=== PATIENT | male | born 1960 | race Caucasian/White ===

== ENCOUNTER 2016-09-28 08:02 | Inpatient (IN) | payer MEDICARE, MEDICAID ==
[2016-09-28] VITALS (7 sets, daily range): BP systolic 128–155; BP diastolic 86–101; PULSE 63–90; RESP 13–19; O2SAT 95–99
[~2016-09-28] VITALS: Ht 170.2 cm; Wt 115.3 kg
--- NOTE | 2016-09-28 08:10 | ED.REPORT ---
HPI-Neurologic Deficit Date of Service Sep 28, 2016 ED Provider: Lisa Camp MD The pt is a 57 y/o male w/ a hx of L eye surgery presenting to the ED via EMS due to a stroke. They report him having witnessed L sided weakness at 0630 this morning that improved, later he went outside and sat down, and was found again w / L sided weakness and slurred speech at 0800. The pt reports chronically poor vision. Denies headaches. Nursing Notes Stated Complaint: POSSIBLE STROKE Chief Complaint: Possible stroke Nursing Notes Reviewed: Yes Allergies: Coded Allergies: No Known Allergies (Unverified , 09/28/16) No Active Prescriptions or Reported Meds General Time Seen by Provider: 08:10 Chief Complaint Other (Possible stroke ) Hx Obtained From: EMS Arrived By: Ambulance Sudden in Onset?: Yes Onset Occurred: 1 - 4 hours ago Symptom Duration: Since onset Recent Healthcare: No recent doctor visit, No recent hospitalization Similar Sx Previous: No Risk Factors NIH Stroke Scale Level of Consciousness: Not alert, arousable (1) 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 (1) Visual Montaño: No visual loss (0) Facial Palsy: Partial paral, lower (2) Right Arm Motor Drift (10s): No drift 10 sec (0) Left Arm Motor Drift (10s): No movement (4) Right Leg Motor Drift (5s): No drift 5 sec (0) Left Leg Motor Drift (5s): No effort, limb fails (3) Sensation (Arms/Legs/Face): Complete sensory loss (2) Language Aphasia: Loss fluency ID matls (1) Dysarthria: Slurring intelligible (1) Extinction/Inattention: No exctinct/inattent (0) Past Medical History Past Medical History None reported Past Surgical History L eye surgery Smoking History Never Smoker Social History Other Social History: Ambulatory Status Independent Review of Systems Neurologic: Reports: Focal weakness (L sided ), Slurred speech, Denies: Headache Complete sys rev & neg: except as marked. Physical Exam Initial Vital Signs Vital Signs (First) Date Time Temp Pulse Resp B/P Pulse Ox O2 Delivery O2 Flow Rate FiO2 09/28/16 08:12 37.4 90 19 155/99 96 Room Air 09/28/16 08:45 2 Initial VS: Reviewed, Vital signs abnormal ENT: Mucous membranes moist, Conjunctiva normal, No scleral icterus Neck: Supple, Non-tender, Full range of motion Abdomen / GI: Soft, Non-tender Skin: Warm, Dry, No cyanosis General/Constitutional: Well nourished Alertness: Positive: Responds to verb stimuli GCS 14 due to lack of spontaneous eye opening Head / Eyes: Normocephalic L pupil small and irregular R pupil large and irregular Respiratory / Chest: Atraumatic, Breath sounds = bilat Rales / Rhonchi: Positive: Rhonchi diffuse Cardiovascular: Heart rate NL, Regular rhythm, Heart sounds NL No carotid bruit Speech: Positive: Slurred Decreased touch to L leg L facial droop No sensation to L arm Interpretation & Diagnostics CT BRAIN TPA Impression: No contraindications to TPA administration found. This information was immediately called directly to the emergency room physician caring for the patient at 8:29. Dictated by: Naveen Reed M.D. on 09/28/16 at 8:30 Approved by: Naveen Reed M.D. on 09/28/16 at 8:34 PROCEDURE: CT ANGIO BRAIN NECK TPA IMPRESSION: No aneurysm or embolus seen, and no area of vascular stenosis or dissection identified. Findings immediately called to the ordering emergency room physician caring for the patient. Dictated by: Naveen Reed M.D. on 09/28/2016 at 10:08 Approved by: Naveen Reed M.D. on 09/28/2016 at 10:14 Lab Results Interpretation Result Diagram: 09/28/16 0824 09/28/16 0824 Test 09/28/16 08:24 White Blood Count 5.1th/mm3 (3.8-10.1) Red Blood Count 4.84mil/mm3 (4.40-5.80) Hemoglobin 14.6g/dL (13.8-17.2) Hematocrit 43.1% (41.0-50.0) Mean Corpuscular Volume 89.0fL (81-100) Mean Corpuscular Hemoglobin 30.2pg (27.0-35.0) Mean Corpuscular Hemoglobin Concent 33.9% (32.0-37.0) Red Cell Distribution Width 14.3% (12.3-15.4) Platelet Count 128bil/L (150-400) Neutrophils (%) (Auto) 64.6% (40-74) Lymphocytes (%) (Auto) 18.9% (14-46) Monocytes (%) (Auto) 13.0% (4-12) Eosinophils (%) (Auto) 2.9% (0-5) Basophils (%) (Auto) 0.4% (0-3) Prothrombin Time 10.8sec (8.1-12.5) Prothromb Time International Ratio 1.01ratio Activated Partial Thromboplast Time 28.1sec (22.8-33.0) Sodium Level 139mEq/L (134-144) Potassium Level 3.9mEq/L (3.5-5.2) Chloride Level 100mEq/L (97-108) Carbon Dioxide Level 26mmol/L (18-29) Blood Urea Nitrogen 16mg/dL (6-24) Creatinine 0.71mg/dL (0.76-1.27) Estimat Glomerular Filtration Rate 122mL/min (>59) Glucose Level 101mg/dL (60-99) Calcium Level 9.2mg/dL (8.5-10.1) Magnesium Level 1.7mg/dL (1.6-2.6) Total Bilirubin 0.8mg/dL (0.0-1.2) Aspartate Amino Transf (AST/SGOT) 28U/L (0-50) Alanine Aminotransferase (ALT/SGPT) 26U/L (0-44) Alkaline Phosphatase 71U/L (25-150) Troponin T 0.010ug/L (0.0-0.011) Total Protein 6.9g/dL (6.4-8.4) Albumin 4.2g/dL (3.4-5.0) Prealbumin 17mg/dL (20-40) Triglycerides Level 65mg/dL (0-149) Cholesterol Level 144mg/dL (100-199) LDL Cholesterol, Calculated 100.000mg/dL (0-99) VLDL Cholesterol 13.000mg/dL HDL Cholesterol 31mg/dL (>39) Cholesterol/HDL Ratio 4.65 (0.0-4.4) ECG Interpretation ECG Interpretation: Rate 79 NSR Time: 09:05 Interpreted by: ED physician X-Ray Chest Interpretation Chest Xray Interpretation: IMPRESSION: Bibasilar mild atelectasis, no pneumonia found, reduced inspiratory volume bilaterally. Dictated by: Naveen Reed M.D. on 09/28/2016 at 9:58 Approved by: Naveen Reed M.D. on 09/28/2016 at 9:58 View: Portable, 1 view Interpretation / Wet Read by: Interpret - Radiologist Re-Eval/Medical Decision Med Decision/Clinical Course The patient presents with witnessed strokelike symptoms at 6:30 which improved and then worsened again. His pain scores 14 however he is unable to do some tasks, he would not open his eyes and had some difficulty following commands. I spoke with Dr. Qureshi at [facility] who recommended TPA, as discussed with the patient and he consented verbally. After receiving TPA he did improve that there were still some difficulty trying to get him to obey some commands, he just wanted to go to sleep. Re-Evaluation/Progress #1: Time of Eval: 08:44 Re-Evaluation/Progress Note: Discussed pts case w/ Dr. Qureshi via telemedicine and they recommended CTA STAT of head and neck Re-Evaluation/Progress #2: Time of Eval: 10:01 Re-Evaluation/Progress Note: Rechecked pt. Pt is more responsive and is able to hold his L arm up better than first arrival. Pt reported to the nurse that he is homeless and smokes meth. Consultation #1: Referral / Consult Name: Lary Qureshi MD Consulted With: Neurology Call Returned at: 10:15 Note: Discussed pts case. Dr. Qureshi reports keeping the pt here and admitting. 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 I, Dr. Camp personally performed the history, physical exam and medical decision-making; I reviewed and confirmed the accuracy of the information in the transcribed note. copies to: [facility] Lisa Camp MD Sep 28, 2016 08:10 Adalberto Joyce Sep 28, 2016 08:32
--- NOTE | 2016-09-28 08:36 | DRSVH ---
PROCEDURE: CT BRAIN TPA INDICATIONS: STROKE COMPARISON: None. TECHNIQUE: Axial 5 mm thin sections through the head were obtained without contrast FINDINGS: No sign of stroke or hemorrhage, no thrombus within the skull base arterial vasculature is identified. Minimal mucosal thickening involves the ethmoid air cells bilaterally symmetric. IMPRESSION: No contraindication to TPA administration found. This information was immediately ramirez d directly to the emergency room physician caring for the patient at 8:29. Dictated by: Naveen Reed M.D. on 09/28/2016 at 8:30 Approved by: Naveen Reed M.D. on 09/28/2016 at 8:34
[2016-09-28 08:37] LABS: BASOPHILS % (AUTO) 0.4 % (0-3); EOSINOPHILS % (AUTO) 2.9 % (0-5); Mean Corpuscular Hemoglobin 30.2 pg (27.0-35.0); NEUTROPHILS % (AUTO) 64.6 % (40-74); Platelet Count 128 bil/L (150-400)
[2016-09-28 08:38] LABS: INR 1.01 ratio
[2016-09-28 08:43] LABS: TROPONIN T 0.01 ug/L (0.0-0.011)
[2016-09-28] MEDS ORDERED: Alteplase (No Charge) 1 mg/mL Syringe IV ONE (08:50)
[2016-09-28] MEDS ORDERED: Alteplase (TPA) 100 mg/100 mL Premix IV ONE (08:52)
[2016-09-28] MEDS ORDERED: Alteplase Dose Per Pharmacist XX ONE (09:05)
--- NOTE | 2016-09-28 10:01 | DRSVH ---
PROCEDURE: X-RAY CHEST ONE VIEW, PORTABLE ([id number]) INDICATIONS: cough TECHNIQUE: One view of the chest was acquired. COMPARISON: None. FINDINGS: Surgical changes and devices: None. Lungs and pleura: No pleural effusions or pneumothorax. Lungs are clear considering reduced inspira tory volume bilaterally. Mediastinum: Mediastinal contours appear normal. Heart size is normal. Bones and chest wall: No suspicious bony lesions. Overlying soft tissues appear unremarkable. IMPRESSION: Bibasilar mild atelectasis, no pneumonia found, reduced inspiratory volume bilaterally. Dictated by: Naveen Reed M.D. on 09/28/2016 at 9:58 Approved by: Naveen Reed M.D. on 09/28/2016 at 9:58
--- NOTE | 2016-09-28 10:16 | DRSVH ---
PROCEDURE: CT ANGIO BRAIN NECK TPA INDICATIONS: Stroke symptoms, improving. TECHNIQUE: Pre-contrast 4.5 mm thick sections acquired from the foramen magnum to the vertex. After the adminis tration of intravenous contrast, 1 mm thick sections acquired from the aortic arch through the [place] of [place]. Post-contrast 4.5 mm thick sections then re-acquired from the foramen magnum to the vert ex. 3-dimensional kgmfhop-dppvywzzc-frfaifkhyf (MIP) and/or volume rendering reformats were acquired of the central intracranial vasculature and neck separately. For radiation dose reduction, the foll owing was used: automated exposure control, adjustment of mA and/or kV according to patient size. COMPARISON: Merged With [facility], CT, CT BRAIN TPA, 09/28/2016, 8:20. FINDINGS: Image quality: Excellent. BRAIN: CSF spaces: Ventricles are normal in size and shape. Basal cisterns are patent. No extra-axial flu id collections. Brain: No midline shift. No intracranial bleeds or masses. Roldan-white matter interface appears int act. Skull and face: Calvarium and facial bones appear intact, without suspicious lesions. Orbits appear normal. Sinuses: Sinuses and mastoids are clear. HEAD CT ANGIOGRAPHY: Anterior circulation: Intracranial internal carotid arteries are normal in size and flow. The flow within the paired anterior cerebral arteries is normal and symmetric. The flow within the middle cer ebral arteries is normal and symmetric. The anterior communicating artery is seen. No aneurysms are seen. Posterior circulation: Visualized portions of the vertebral arteries demonstrate normal caliber, and join to form a normal appearing basilar artery. Flow within the posterior cerebral arteries is norm al and symmetric. No aneurysms are seen. NECK CT ANGIOGRAPHY: Carotid system: The great vessels demonstrate a conventional anatomy as they arise from the aortic a [facility]. The origins of the common carotid arteries appear patent. The common carotid arteries demonstr ate normal caliber and courses. The bifurcation regions are both widely patent. The internal caroti d arteries demonstrate normal calibers and courses. Posterior circulation: The origins of the vertebral arteries both appear widely patent. The more morataya perior extracranial portions of both vertebral arteries also demonstrate normal courses and calibers. They join to form a normal appearing basilar artery. Soft tissues: Visualized neck soft tissues demonstrate no suspicious abnormalities. A small focus o f increased radiodensity at the right forehead area is incidentally noted, possibly a minimal contusi on from recent trauma but a small focus of scar tissue also could produce the appearance. Bones: No suspicious bony lesions. Visualized cervical spine appears normally aligned. IMPRESSION: No aneurysm or embolus seen, and no area of vascular stenosis or dissection identified. Findings immediately called to the ordering emergency room physician caring for the patient. Dictated by: Naveen Reed M.D. on 09/28/2016 at 10:08 Approved by: Naveen Reed M.D. on 09/28/2016 at 10:14
--- NOTE | 2016-09-28 13:27 | NUR ---
Order for swallow eval received. The pt is somnolent and not yet appropriate for a swallow eval. ST will f/u tomorrow. Rec strict NPO until swallow eval is completed.
[2016-09-28] MEDS ORDERED: Ondansetron 2 mg/mL 2 mL Inj IVPUSH PRN (13:45)
[2016-09-28] MEDS ORDERED: Labetalol 5 mg/mL 20 mL Inj IVPUSH PRN (13:45)
[2016-09-28 14:18] LABS: Magnesium 1.7 mg/dL (1.6-2.6)
--- NOTE | 2016-09-28 14:26 | PCM.HPMED ---
Subjective Date of Service Sep 28, 2016 Primary Provider: Admitting Physician: Valdemar Root MD Primary Care Physician: [place] Attending Physician: Valdemar Root MD Admit Status: From the Emergency Department, Critical Care Chief Complaint: Left-sided weakness and slurred speech History of Present Illness: This is a 56-year-old male who is somewhat somnolent the CCU after being transferred from the emergency department. He is able to interact or answer any questions. All history is related entirely from the emergency room physician. She relates that the patient developed left-sided weakness and approximate 6:30 this morning. He would then went outside of his house was significant porch where he was found to be more confused and have a more prominent weakness in his left arm and leg as well as a facial symptoms or speech. He was brought to the emergency department. He has all urination about 10 and underwent a stat CT of the head which was negative for evidence of bleed. [place] neurology was consulted from [facility] and the decision was made to treat him with TPA for acute stroke significant left hemiparesis. The patient apparently had some improvement neurologically she was able to lift his left arm after TPA. He was then transferred to the floor and when initially seen in the floor has garbled speech, is somnolent, has minimal if any movement of left arm but can move the left leg and response to noxious stimulation. Because of his mental status subjective and review of systems are unobtainable. Review of Systems: Unobtainable due to somnolence Allergies Coded Allergies: No Known Allergies (Unverified , 09/28/16) Home Medications None per ED records PMH Unremarkable other than asymmetric pupils Surgical History Left eye surgery, details not available. Family History Not obtainable Social History Occupation: not obtainable Hx Alcohol Use: No (hx from ED RN) Hx Substance Use: Yes (Hx per ED RN) Smoking Status: Never Smoker Living Arrangement: with Family Exam Vital Signs Vital Sign - Last Date Time Temp Pulse Resp B/P Pulse Ox O2 Delivery O2 Flow Rate FiO2 09/28/16 11:51 36.5 09/28/16 11:15 74 14 154/99 95 Room Air 09/28/16 08:55 2 Exam Patient is somnolent and minimally arousable. He can follow commands by squeezing collections rep with his right hand and moving his right foot. The patient does not move his left lower extremity to commands but does pull up 1 given a noxious stimulation. The left arm appears to be flaccid, there is no discernible facial droop. Patient does have garbled speech. [place] area with a irregular small left pupillary irregular large right pupil. Normal skull. Normal nose and ears. Anicteric sclera, symmetric pupils Oropharynx is unremarkable, no facial droop. Neck is supple, normal thyroid. No adenopathy. Lungs are clear, normal effort rate. Heart is regular without murmur gallop or rub. Abdomen soft, nondistended or tender. Extremities are free of pedal edema. Good radial and pedal pulses. Skin is free of rash, lesions. No petechiae or ecchymosis. Joints are grossly normal. Cranial nerves are grossly normal. On garbled speech. Gaze is conjugate. Motor strength is normal right arm and leg. Patient does have some movement of left leg with noxious stimulation and left arm appears to be flaccid.. Normal muscular tone. On the right side of body. Lab and Diagnostics Result Diagram: 09/28/1682309/28/16823 X-Rays, CTs and MRIs Date of Service: 09/28/16802 PROCEDURE: CT BRAIN TPA INDICATIONS: STROKE COMPARISON: None. TECHNIQUE: Axial 5 mm thin sections through the head were obtained without contrast FINDINGS: No sign of stroke or hemorrhage, no thrombus within the skull base arterial vasculature is identified. Minimal mucosal thickening involves the ethmoid air cells bilaterally symmetric. IMPRESSION: No contraindication to TPA administration found. This information was immediately called directly to the emergency room physician caring for the patient at 8:29. Dictated by: Naveen Reed M.D. on 09/28/2016 at 8:30 Approved by: Naveen Reed M.D. on 09/28/2016 at 8:34 Date of Service: 09/28/16 0845 PROCEDURE: CT ANGIO BRAIN NECK TPA INDICATIONS: Stroke symptoms, improving. TECHNIQUE: Pre-contrast 4.5 mm thick sections acquired from the foramen magnum to the vertex. After the administration of intravenous contrast, 1 mm thick sections acquired from the aortic arch through the [place] of [place]. Post-contrast 4.5 mm thick sections then re-acquired from the foramen magnum to the vertex. 3- dimensional kftmqor-ncwauwqky-qxceqfrnmg (MIP) and/or volume rendering reformats were acquired of the central intracranial vasculature and neck separately. For radiation dose reduction, the following was used: automated exposure control, adjustment of mA and/or kV according to patient size. COMPARISON: [facility], CT, CT BRAIN TPA, 09/28/2016, 8:20. FINDINGS: Image quality: Excellent. BRAIN: CSF spaces: Ventricles are normal in size and shape. Basal cisterns are patent. No extra-axial fluid collections. Brain: No midline shift. No intracranial bleeds or masses. Roldan-white matter interface appears intact. Skull and face: Calvarium and facial bones appear intact, without suspicious lesions. Orbits appear normal. Sinuses: Sinuses and mastoids are clear. HEAD CT ANGIOGRAPHY: Anterior circulation: Intracranial internal carotid arteries are normal in size and flow. The flow within the paired anterior cerebral arteries is normal and symmetric. The flow within the middle cerebral arteries is normal and symmetric. The anterior communicating artery is seen. No aneurysms are seen. Posterior circulation: Visualized portions of the vertebral arteries demonstrate normal caliber, and join to form a normal appearing basilar artery. Flow within the posterior cerebral arteries is normal and symmetric. No aneurysms are seen. NECK CT ANGIOGRAPHY: Carotid system: The great vessels demonstrate a conventional anatomy as they arise from the aortic arch. The origins of the common carotid arteries appear patent. The common carotid arteries demonstrate normal caliber and courses. The bifurcation regions are both widely patent. The internal carotid arteries demonstrate normal calibers and courses. Posterior circulation: The origins of the vertebral arteries both appear widely patent. The more superior extracranial portions of both vertebral arteries also demonstrate normal courses and calibers. They join to form a normal appearing basilar artery. Soft tissues: Visualized neck soft tissues demonstrate no suspicious abnormalities. A small focus of increased radiodensity at the right forehead area is incidentally noted, possibly a minimal contusion from recent trauma but a small focus of scar tissue also could produce the appearance. Bones: No suspicious bony lesions. Visualized cervical spine appears normally aligned. IMPRESSION: No aneurysm or embolus seen, and no area of vascular stenosis or dissection identified. Findings immediately called to the ordering emergency room physician caring for the patient. Dictated by: Naveen Reed M.D. on 09/28/2016 at 10:08 Approved by: Naveen Reed M.D. on 09/28/2016 at 10:14 Assessment & Plan #. 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 This is either stable or slightly improved. The patient did undergo TPA infusion. The patient placed on post-TPA stroke order set and will undergo interval CT scan now to rule out hemorrhage or evidence of developing cortical stroke. #. Acute encephalopathy, POA. We will follow clinically. CT scan to rule out hemorrhage. #. Chronic anisocoria, POA. Patient is presumed to be a full resuscitation Patient is admitted inpatient status with an expected length of stay of over 2 nights. Pain Evaluation: Adequate Pain Control Resuscitation Status: CPR: Attempt Resuscitation Time spent 45 min Valdemar Root MD Sep 28, 2016 14:26
--- NOTE | 2016-09-28 14:59 | NUR ---
From ED to CCU #2015 at 1115 via alon, s/p TPA. Has remained somnolent, responding to questions with grunts and groans, has not opened eyes to command or spontaneously. Left arm is flaccid, have noted no movement of his left lower extremity. The only command he has responded to appropriately is holding his right arm elevated once assisted to do so. He does resist oral care and face washing by shaking his head back and forth and mumbling. Has not voided. Skin appears intact, some redness to groin skin folds and buttocks, full bath given upon arrival. MD updated with continued somnolence, BPs. Repeat CT scan ordered, post-tpa protocol.
--- NOTE | 2016-09-28 17:24 | DRSVH ---
PROCEDURE: CT BRAIN WITHOUT CONTRAST ([id number]) INDICATIONS: 4-6 hrs Post tPA Infusion TECHNIQUE: Noncontrast 4.5 mm thick angled axial sections acquired from the foramen magnum to the vertex, with c oronal reformats. COMPARISON: [facility], CT, CT BRAIN TPA, 09/28/2016, 8:20. FINDINGS: Image quality: Excellent. CSF spaces: Basal cisterns are patent. No extra-axial fluid collections. Ventricles are normal in size and shape. Brain: No midline shift. No intracranial masses or hemorrhage. Roldan-white matter interface is norm al. Skull and face: Calvarium and visualized facial bones are intact, without suspicious lesions. Sinuses: Visualized sinuses and mastoids are clear. IMPRESSION: No changeover operator time, no intracranial hemorrhage after TPA infusion. Dictated by: Naveen Reed M.D. on 09/28/2016 at 17:22 Approved by: Naveen Reed M.D. on 09/28/2016 at 17:22
[2016-09-28 18:27] LABS: APPEARANCE,URINE CLEAR (CLEAR,HAZY); COLOR,URINE YELLOW (YELLOW); OCCULT BLOOD,URINE NEGATIVE (NEGATIVE); PH,URINE 5.5 (5.0-8.0); UROBILINOGEN,URINE NORMAL (NORMAL)
[2016-09-28] MEDS: 0.9% Sodium Chloride 1,000 ML IV SCH (19:53)
[2016-09-29] VITALS (7 sets, daily range): BP systolic 124–140; BP diastolic 81–92; PULSE 65–75; RESP 13–16; O2SAT 93–96
--- NOTE | 2016-09-29 03:52 | NUR ---
S/P TPA Pt uncooperative with assessing neurological status. At beginning of shift, pt followed commands and squeezed with left hand and was able to lift his left leg off the bed. Subsequent assessments, pt would not open his eyes, Pt not following commands to squeeze hands including right hand. VSS, BP normal to hypertensive allowing for permissive hypertension s/p TPA. NS infusing at 100ml/hour per Dr. Foster's order.
[2016-09-29] MEDS: 0.9% Sodium Chloride 1,000 ML IV SCH ×3 (05:39→19:25)
--- NOTE | 2016-09-29 10:18 | PCM.PNMED ---
Subjective Date of Service Sep 29, 2016 Subjective The patient is improved very little overnight. He is an apparent dense left hemiparesis and is very lethargic and speaks very little. His left facial droop. No significant overnight events Patient is too somnolent to answer any questions, therefore review of systems and subjective are unobtainable. Exam Vital Signs Vital Sign - Last Date Time Temp Pulse Resp B/P Pulse Ox O2 Delivery O2 Flow Rate FiO2 09/29/16 03:19 36.8 67 14 133/92 96 Room Air 09/28/16 08:55 2 Intake and Output 09/28/16 09/28/16 09/29/16 Cumulative From/Thru 15:00 23:00 07:00 09/28/16 08:12 - 09/29/16 05:20 Intake Total 20 ml 903 ml 923 ml Output Total 500 ml 300 ml 800 ml Balance -480 ml 603 ml 123 ml Intake Oral 0 ml 0 ml 0 ml IV Total 20 ml 903 ml 923 ml Output Urine Total 500 ml 300 ml 800 ml # Bowel Movements 0 0 0 Exam Somnolent and minimally arousable. No distress. Anicteric sclera. Left facial droop, slurred speech Lungs are clear with normal rate and effort Heart is regular without murmur gallop or rub Abdomen soft nontender, not distended Extremities are free of edema. Skin is free of rash or lesions. Left arm is flaccid Left leg appears to be flaccid. IVs and Medications Medications Reviewed: Medications were reviewed in detail Lab and Diagnostics Result Diagram: 09/28/1682309/[id number]/16823 X-Rays, CTs and MRIs Date of Service: 09/28/16 0803 PROCEDURE: CT BRAIN TPA INDICATIONS: STROKE COMPARISON: None. TECHNIQUE: Axial 5 mm thin sections through the head were obtained without contrast FINDINGS: No sign of stroke or hemorrhage, no thrombus within the skull base arterial vasculature is identified. Minimal mucosal thickening involves the ethmoid air cells bilaterally symmetric. IMPRESSION: No contraindication to TPA administration found. This information was immediately called directly to the emergency room physician caring for the patient at 8:29. Dictated by: Naveen Reed M.D. on 09/28/2016 at 8:30 Approved by: Naveen Reed M.D. on 09/28/2016 at 8:34 Date of Service: 09/28/16 0845 PROCEDURE: CT ANGIO BRAIN NECK TPA INDICATIONS: Stroke symptoms, improving. TECHNIQUE: Pre-contrast 4.5 mm thick sections acquired from the foramen magnum to the vertex. After the administration of intravenous contrast, 1 mm thick sections acquired from the aortic arch through the Kimberly of Andrade. Post-contrast 4.5 mm thick sections then re-acquired from the foramen magnum to the vertex. 3- dimensional xqykino-olsfmajcz-nuojrkxixh (MIP) and/or volume rendering reformats were acquired of the central intracranial vasculature and neck separately. For radiation dose reduction, the following was used: automated exposure control, adjustment of mA and/or kV according to patient size. COMPARISON: [facility], CT, CT BRAIN TPA, 09/28/2016, 8:20. FINDINGS: Image quality: Excellent. BRAIN: CSF spaces: Ventricles are normal in size and shape. Basal cisterns are patent. No extra-axial fluid collections. Brain: No midline shift. No intracranial bleeds or masses. Roldan-white matter interface appears intact. Skull and face: Calvarium and facial bones appear intact, without suspicious lesions. Orbits appear normal. Sinuses: Sinuses and mastoids are clear. HEAD CT ANGIOGRAPHY: Anterior circulation: Intracranial internal carotid arteries are normal in size and flow. The flow within the paired anterior cerebral arteries is normal and symmetric. The flow within the middle cerebral arteries is normal and symmetric. The anterior communicating artery is seen. No aneurysms are seen. Posterior circulation: Visualized portions of the vertebral arteries demonstrate normal caliber, and join to form a normal appearing basilar artery. Flow within the posterior cerebral arteries is normal and symmetric. No aneurysms are seen. NECK CT ANGIOGRAPHY: Carotid system: The great vessels demonstrate a conventional anatomy as they arise from the aortic arch. The origins of the common carotid arteries appear patent. The common carotid arteries demonstrate normal caliber and courses. The bifurcation regions are both widely patent. The internal carotid arteries demonstrate normal calibers and courses. Posterior circulation: The origins of the vertebral arteries both appear widely patent. The more superior extracranial portions of both vertebral arteries also demonstrate normal courses and calibers. They join to form a normal appearing basilar artery. Soft tissues: Visualized neck soft tissues demonstrate no suspicious abnormalities. A small focus of increased radiodensity at the right forehead area is incidentally noted, possibly a minimal contusion from recent trauma but a small focus of scar tissue also could produce the appearance. Bones: No suspicious bony lesions. Visualized cervical spine appears normally aligned. IMPRESSION: No aneurysm or embolus seen, and no area of vascular stenosis or dissection identified. Findings immediately called to the ordering emergency room physician caring for the patient. Dictated by: Naveen Reed M.D. on 09/28/2016 at 10:08 Approved by: Naveen Reed M.D. on 09/28/2016 at 10:14 Assessment & Plan #. 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 The patient appears to have minimal response to TPA. Appears to have a dense left hemiparesis. He also appears to have significant lethargy, somnolence, dysphagia, and dysarthria. We will place a feeding tube and start tube feeds today, transferred to third floor. Begin physical therapy. We will also continue evaluation with echo, carotid duplex ultrasound. Patient will start on rectal aspirin. We will convert to tube medications once tube is in. Anticipate a long rehabilitation phase and retirement facility. We will begin this process. #. Acute encephalopathy, POA. We will follow clinically. CT scan ruled out hemorrhage. #. Chronic anisocoria, POA. #. Possible methamphetamine abuse. We will perform a drug screen. DVT prophylaxis with heparin subcutaneous. Patient is presumed to be a full resuscitation Patient is admitted inpatient status with an expected length of stay of over 2 nights. Resuscitation Status: CPR: Attempt Resuscitation Valdemar Root MD Sep 29, 2016 10:18
--- NOTE | 2016-09-29 10:37 | NUR ---
SPEECH PATHOLOGY CONTINUES TO FOLLOW PT. FOR APPROPRIATENESS FOR CLINICAL BEDSIDE EVALUATION. STRAIGHTENING PRESS OPERATOR HELPER OBSERVED PT. WHILE MD WAS ASSESSING HIM AND RN WAS REPOSITIONING. PT. CONTINUES TO BE SOMNOLENT WITH MINIMAL AROUSAL. PT. IS NOT APPROPRIATE FOR PO TRIALS AT THIS TIME. RECOMMEND STRICT NPO. TEAM MAY WANT TO CONSIDER SHORT TERM ALTERNATIVE MEANS FOR NUTRITION, HYDRATION AND MEDICATION. STRAIGHTENING PRESS OPERATOR HELPER TO FOLLOW APPROPRIATE.
--- NOTE | 2016-09-29 12:14 | NUR ---
Arrival to 3019 Patient transferred to [facility] at 1045, 4pa slide to new bed. Unable to help assist w/ transfer, able to slightly open eyes (delayed) upon command, able to hold left arm w/ right hand when scooting up in bed, tinajero patent draining to gravity, SCD's on, bed alarm set, NS infusing @ 125ml/hr, currently down in MRI. Plan to admin ASA supp upon return. Oral care being given. Remains NPO.
--- NOTE | 2016-09-29 13:24 | DRSVH ---
PROCEDURE: MRI BRAIN WITHOUT CONTRAST ([id number]) INDICATIONS: Post tPA IF CTA NOT done w/tPA Infusion TECHNIQUE: Non-contrast axial T1 spin echo, axial T2 fast spin echo, sagittal and axial FLAIR, coronal T2 fast s pin echo, axial gradient echo, axial diffusion and ADC through the brain. COMPARISON: None. FINDINGS: Image quality: Motion degraded examination.. CSF spaces: Ventricles appear symmetric in size and shape. Basal cisterns are patent. No extra-axi al fluid collections. Brain: No intracranial bleeds or mass effects. There is cerebral volume loss for age. There are pe riventricular and deep white matter chronic small vessel ischemic changes. Brainstem appears normal. Diffusion-weighted images show acute ischemia within the right basal ganglia region involving the p osterior limb of the right internal capsule, and the right frontal periventricular white matter/centr um semiovale. Normal intravascular flow voids are present. Skull and face: Calvarial bone marrow is normal in signal. Orbits are normal. Sinuses: Sinuses and mastoids are clear. IMPRESSION: Acute ischemia involving the right basal ganglia, and right centrum semiovale as above. Dictated by: Donny Woo M.D. on 09/29/2016 at 13:15 Approved by: Donny Woo M.D. on 09/29/2016 at 13:22
[2016-09-29] MEDS: Heparin 5,000 Unit/mL Inj SUBQ SCH (14:01)
--- NOTE | 2016-09-29 14:01 | DRSVH ---
[facility] [address] [place] [address] Echocardiogram Report Name: GRECIA NUGENT Study Date: 09/29/2016 Height: 67 in Hospital Exam Location: [facility] Weight: 254 lb Gender: Male BSA: 2.2 m2 : 1960 Age: 56 yrs BP: 131/93 mm Hg Reason For Study: CVA Ordering Physician: [facility]OSPITALIST [facility] Performed By: Anna Guido Referring Physician: Janie Bob Interpretation Summary The left ventricular cavity is small. Proximal septal thickening is noted. There is no echo evidence for significant left ventricular outflow tract obstruction. The left ventricle is hyperdynamic. The ejection fraction is estimated to be 70-75%. The right ventricle is normal in size and function. Injection of contrast documented no interatrial shunt. No significant valvular pathology seen. Mild atherosclerotic plaque(s) in the aortic arch. The ascending aorta is mild-moderately enlarged. Procedure: A two-dimensional transthoracic echocardiogram with color flow and Doppler was performed. The study quality was technically good. A saline contrast injection was performed to assess for cardiac shunting. There is no prior echocardiogram noted for this patient. The patient was in normal sinus rhythm during the exam. Left Ventricle: There is mild concentric left ventricular hypertrophy. Proximal septal thickening is noted. The left ventricular cavity is small. There is no echo evidence for significant left ventricular outflow tract obstruction. There is no thrombus. The ejection fraction is estimated to be 70-75%. The left ventricle is hyperdynamic. There are no focal wall motion abnormalities. Assessment of diastolic parameters indicates normal left ventricular diastolic function and normal filling pressures. Right Ventricle: The right ventricle is normal in size and function. Atria: Both atria are normal in size. The interatrial septum is intact with no evidence for an atrial septal defect. Injection of contrast documented no interatrial shunt. The thickening of interatrial septum suggests lipomatous hypertrophy. Mitral Valve: The mitral valve leaflets appear mildly thickened, but open well. The mitral valve leaflets are slightly calcified. There is mild mitral annular calcification. There is trace mitral regurgitation. Aortic Valve: The aortic valve is trileaflet. The aortic valve opens well. The aortic valve is slightly calcified. There is no aortic valve stenosis. There is trace aortic regurgitation. Tricuspid Valve: The tricuspid valve is normal in structure and function. There is trace tricuspid regurgitation. Pulmonary artery pressures cannot be estimated because of the lack of a measurable TR jet velocity. Pulmonic Valve: The pulmonic valve is normal in structure and function. There is trace pulmonic regurgitation. Great Vessels: The aortic root is normal size. The ascending aorta is mild- moderately enlarged. Mild atherosclerotic plaque(s) in the aortic arch. The IVC is of normal diameter and collapses greater than 50% with a sniff. This suggests a low right atrial pressure of 3 mm Hg. Pericardium/ Pleura There is no pericardial effusion. There is an anterior echo-free space consistent with a fat pad. There is no pleural effusion. MMode/2D Measurements & Calculations LVIDd: 5.5 cm LA A2 area LVOT diam: 2.4 cm LV crews. diameter/BSA LVIDs: 3.7 cm asc Aorta Diam (cm/m^2): 2.5 FS: 32.7 % IVSd: 1.1 cm LA A4 area Ao Arch Diam LVPWd: 1.1 cm (Prox Trans): LA length .2 cm (vol): 5.7 cm LA vol: 59.7 ml LA vol index : 26.7 ml/m2 LV sys. diameter/BSA TAPSE: 2.3 cm (cm/m^2): 1.7 Doppler Measurements & Calculations Ao V2 max MV E max moris MV E/A: 1.2 MV dec time : 128.6 cm/sec : 74.1 cm/sec Med Peak E' Moris : 0.16 sec Ao max P.6 mmHgMV A max moris Ao mean PG : 63.8 cm/sec E/E' med: 9.7 Lat Peak E' Moris LVOT Max Moris : 100.5 cm/sec E/E' lat: 5.6 E/e' average: 7.7 MILES(I,D): 4.7 cm sev ratio: 1.0 Ao V2 mean LV V1 max PG MILES indexed to BSA : 84.7 cm/sec (cm^2/m^2): 2.1 Ao V2 VTI: 21.0 cm LV V1 VTI: 21.9 cm MILES(V,D): 3.5 cm2 Reading Physician:JASON
--- NOTE | 2016-09-29 18:11 | NUR ---
Mentation Patient used call light around 1700 d/t wanting to get repositioned in bed. When asked where he was, stated, "[facility]". Difficulty communicating needs d/t slurred, mumbled, soft speech, mostly sleeps but arouses to moderate touch, able to answer questions appropriately when awake. Tolerating ice chips. Md aware of awakening mentation, order to hold off on NG tube, plan to reassess tomorrow.
--- NOTE | 2016-09-29 18:30 | NUR ---
Blood Glucose 1820 BG 75, trending downward, patient remains NPO, ice chips only, NS infusing @ 125ml/hr, no D50 ordered. Md griffinpaged to be made aware to see if IV fluids w/ dextrose should be ordered or D50 incase he continues to drop.
[2016-09-29] MEDS: Dextrose 5% 0.45% NaCl 1,000 ML IV SCH (20:08)
--- NOTE | 2016-09-29 21:31 | NUR ---
Bed/teaching Pt now on a FELISA bed d/t being immobile and on q2hr turns. Pt appears somnolent at this time, no CVA teaching provided on shift. L arm flaccid, L foot with slight movement. Weakness on R side but able to assist with turns. Unable to assess pupils d/t pt not opening his eyes. Denies pain. Speech very muffled/slurred. Bed in low position, 3 rails up, call light on R side. Will continue to monitor.
[2016-09-30] VITALS (8 sets, daily range): BP systolic 120–153; BP diastolic 78–100; PULSE 58–73; RESP 16–18; O2SAT 95–97
[2016-09-30] MEDS: Heparin 5,000 Unit/mL Inj SUBQ SCH ×2 (01:12→15:34)
[2016-09-30] MEDS: Dextrose 5% 0.45% NaCl 1,000 ML IV SCH ×2 (05:27→15:34)
--- NOTE | 2016-09-30 10:56 | NUR ---
Evaluation completed. Please go to "Notes" then click on "Assessments and Notes" (bottom left corner of screen). Then select appropriate discipline tab on top of screen.
--- NOTE | 2016-09-30 12:55 | PCM.PNMED ---
Subjective Date of Service Sep 30, 2016 Subjective Patient sitting in chair. He does have some slurred speech and is a little bit drowsy but does arouse and answer questions appropriately. Exam Vital Signs Vital Sign - Last Date Time Temp Pulse Resp B/P Pulse Ox O2 Delivery O2 Flow Rate FiO2 09/30/16 09:09 60 09/30/16 08:53 36.9 18 135/91 96 Room Air 09/28/16 08:55 2 Intake and Output 09/29/16 09/29/16 09/30/16 Cumulative From/Thru 15:00 23:00 07:00 09/28/16 08:12 - 09/30/16 05:26 Intake Total 714 ml 1222 ml 2859 ml Output Total 425 ml 1225 ml Balance 289 ml 1222 ml 1634 ml Intake Oral 0 ml 0 ml IV Total 714 ml 1222 ml 2859 ml Output Urine Total 425 ml 1225 ml # Bowel Movements 0 0 Exam Constitutional obese middle-age male who is in no acute distress but a bit drowsy Head: Left facial droop Chest: Clear to auscultation Cor: Regular rate and rhythm S1-S2 Abdomen: Soft nontender bowel sounds present Extremities trace bilateral pedal edema Neuro he is drowsy but does awaken and answers questions appropriately. He is oriented 3. Has left hemiparesis. With some dysarthria. IVs and Medications Medications Reviewed: Medications were reviewed in detail Lab and Diagnostics Laboratory Tests 72 Hours Test 09/28/16 08:24 09/28/16 17:53 White Blood Count 5.1th/mm3 (3.8-10.1) Red Blood Count 4.84mil/mm3 (4.40-5.80) Hemoglobin 14.6g/dL (13.8-17.2) Hematocrit 43.1% (41.0-50.0) Mean Corpuscular Volume 89.0fL (81-100) Mean Corpuscular Hemoglobin 30.2pg (27.0-35.0) Mean Corpuscular Hemoglobin Concent 33.9% (32.0-37.0) Red Cell Distribution Width 14.3% (12.3-15.4) Platelet Count 128bil/L (150-400) Neutrophils (%) (Auto) 64.6% (40-74) Lymphocytes (%) (Auto) 18.9% (14-46) Monocytes (%) (Auto) 13.0% (4-12) Eosinophils (%) (Auto) 2.9% (0-5) Basophils (%) (Auto) 0.4% (0-3) Prothrombin Time 10.8sec (8.1-12.5) Prothromb Time International Ratio 1.01ratio Activated Partial Thromboplast Time 28.1sec (22.8-33.0) Sodium Level 139mEq/L (134-144) Potassium Level 3.9mEq/L (3.5-5.2) Chloride Level 100mEq/L (97-108) Carbon Dioxide Level 26mmol/L (18-29) Blood Urea Nitrogen 16mg/dL (6-24) Creatinine 0.71mg/dL (0.76-1.27) Estimat Glomerular Filtration Rate 122mL/min (>59) Glucose Level 101mg/dL (60-99) Hemoglobin A1c 5.5% (4.8-5.6) Calcium Level 9.2mg/dL (8.5-10.1) Magnesium Level 1.7mg/dL (1.6-2.6) Total Bilirubin 0.8mg/dL (0.0-1.2) Aspartate Amino Transf (AST/SGOT) 28U/L (0-50) Alanine Aminotransferase (ALT/SGPT) 26U/L (0-44) Alkaline Phosphatase 71U/L (25-150) Troponin T 0.010ug/L (0.0-0.011) Total Protein 6.9g/dL (6.4-8.4) Albumin 4.2g/dL (3.4-5.0) Prealbumin 17mg/dL (20-40) Triglycerides Level 65mg/dL (0-149) Cholesterol Level 144mg/dL (100-199) LDL Cholesterol, Calculated 100.000mg/dL (0-99) VLDL Cholesterol 13.000mg/dL HDL Cholesterol 31mg/dL (>39) Cholesterol/HDL Ratio 4.65 (0.0-4.4) Urine Color Yellow (YELLOW) Urine Appearance Clear (CLEAR,HAZY) Urine pH 5.5 (5.0-8.0) Urine Specific [place] 1.020 (1.003-1.035) Urine Protein Negativemg/dL (NEG,TRACE) Urine Glucose (UA) Negativemg/dL (NEGATIVE) Urine Ketones Negativemg/dL (NEGATIVE) Urine Occult Blood Negative (NEGATIVE) Urine Nitrite Negative (NEGATIVE) Urine Bilirubin Negative (NEGATIVE) Urine Urobilinogen Normalmg/dL (NORMAL) Urine Leukocyte Esterase Negative (NEGATIVE) Urine RBC 0-2/hpf (0-2) Urine WBC 0-5/hpf (0-5) Urine Epithelial Cells Occasional/hpf (NONE-MOD) Urine Crystals None seen (NONE SEEN) Urine Bacteria Few/hpf (NONE-FEW) Urine Hyaline Casts None/lpf (NONE) Urine Granular Casts None seen (NONE SEEN) Urine Waxy Casts None seen (NONE SEEN) Urine Red Blood Cell Casts None seen (NONE SEEN) Urine White Blood Cell Casts None seen (NONE SEEN) Urine Mucus Present (None Seen) Urine Trichomonas None seen (NONE SEEN) Urine Yeast None (NONE SEEN) Urinalysis Comment None Urine Culture Reflexed Not indicated Urine Opiates Screen Negative Urine Methadone Screen Negative Urine Barbiturates Screen Negative Urine Amphetamines Screen Positive Urine Benzodiazepines Screen Negative Urine Cocaine Metabolite Screen Negative Urine Cannabinoids Screen Negative Result Diagram: 09/28/1682309/28/16823 X-Rays, CTs and MRIs Date of Service: 09/28/16802 PROCEDURE: CT BRAIN TPA INDICATIONS: STROKE COMPARISON: None. TECHNIQUE: Axial 5 mm thin sections through the head were obtained without contrast FINDINGS: No sign of stroke or hemorrhage, no thrombus within the skull base arterial vasculature is identified. Minimal mucosal thickening involves the ethmoid air cells bilaterally symmetric. IMPRESSION: No contraindication to TPA administration found. This information was immediately called directly to the emergency room physician caring for the patient at 8:29. Dictated by: Naveen Reed M.D. on 09/28/2016 at 8:30 Approved by: Naveen Reed M.D. on 09/28/2016 at 8:34 Date of Service: 09/28/1645 PROCEDURE: CT ANGIO BRAIN NECK TPA INDICATIONS: Stroke symptoms, improving. TECHNIQUE: Pre-contrast 4.5 mm thick sections acquired from the foramen magnum to the vertex. After the administration of intravenous contrast, 1 mm thick sections acquired from the aortic arch through the [place] of [place]rade. Post-contrast 4.5 mm thick sections then re-acquired from the foramen magnum to the vertex. 3- dimensional tkzngcm-wtndefbho-hqhgvjmohu (MIP) and/or volume rendering reformats were acquired of the central intracranial vasculature and neck separately. For radiation dose reduction, the following was used: automated exposure control, adjustment of mA and/or kV according to patient size. COMPARISON: [facility], CT, CT BRAIN TPA, 09/28/2016, 8:20. FINDINGS: Image quality: Excellent. BRAIN: CSF spaces: Ventricles are normal in size and shape. Basal cisterns are patent. No extra-axial fluid collections. Brain: No midline shift. No intracranial bleeds or masses. Roldan-white matter interface appears intact. Skull and face: Calvarium and facial bones appear intact, without suspicious lesions. Orbits appear normal. Sinuses: Sinuses and mastoids are clear. HEAD CT ANGIOGRAPHY: Anterior circulation: Intracranial internal carotid arteries are normal in size and flow. The flow within the paired anterior cerebral arteries is normal and symmetric. The flow within the middle cerebral arteries is normal and symmetric. The anterior communicating artery is seen. No aneurysms are seen. Posterior circulation: Visualized portions of the vertebral arteries demonstrate normal caliber, and join to form a normal appearing basilar artery. Flow within the posterior cerebral arteries is normal and symmetric. No aneurysms are seen. NECK CT ANGIOGRAPHY: Carotid system: The great vessels demonstrate a conventional anatomy as they arise from the aortic arch. The origins of the common carotid arteries appear patent. The common carotid arteries demonstrate normal caliber and courses. The bifurcation regions are both widely patent. The internal carotid arteries demonstrate normal calibers and courses. Posterior circulation: The origins of the vertebral arteries both appear widely patent. The more superior extracranial portions of both vertebral arteries also demonstrate normal courses and calibers. They join to form a normal appearing basilar artery. Soft tissues: Visualized neck soft tissues demonstrate no suspicious abnormalities. A small focus of increased radiodensity at the right forehead area is incidentally noted, possibly a minimal contusion from recent trauma but a small focus of scar tissue also could produce the appearance. Bones: No suspicious bony lesions. Visualized cervical spine appears normally aligned. IMPRESSION: No aneurysm or embolus seen, and no area of vascular stenosis or dissection identified. Findings immediately called to the ordering emergency room physician caring for the patient. Dictated by: Naveen Reed M.D. on 09/28/2016 at 10:08 Approved by: Naveen Reed M.D. on 09/28/2016 at 10:14 PROCEDURE: MRI BRAIN WITHOUT CONTRAST ([id number]) INDICATIONS: Post tPA IF CTA NOT done w/tPA Infusion TECHNIQUE: Non-contrast axial T1 spin echo, axial T2 fast spin echo, sagittal and axial FLAIR, coronal T2 fast spin echo, axial gradient echo, axial diffusion and ADC through the brain. COMPARISON: None. FINDINGS: Image quality: Motion degraded examination.. CSF spaces: Ventricles appear symmetric in size and shape. Basal cisterns are patent. No extra-axial fluid collections. Brain: No intracranial bleeds or mass effects. There is cerebral volume loss for age. There are periventricular and deep white matter chronic small vessel ischemic changes. Brainstem appears normal. Diffusion-weighted images show acute ischemia within the right basal ganglia region involving the posterior limb of the right internal capsule, and the right frontal periventricular white matter/centrum semiovale. Normal intravascular flow voids are present. Skull and face: Calvarial bone marrow is normal in signal. Orbits are normal. Sinuses: Sinuses and mastoids are clear. IMPRESSION: Acute ischemia involving the right basal ganglia, and right centrum semiovale as above. Dictated by: Donny Woo M.D. on 09/29/2016 at 13:15 Approved by: Donny Woo M.D. on 09/29/2016 at 13:22 Cardiac Echo Impressions Echocardiogram Report Name: GRECIA NUGENT Study Date: 09/29/2016 Height: 67 in Hospital Exam Location: [facility] Weight: 254 lb Gender: Male BSA: 2.2 m2 : 1960 Age: 56 yrs BP: 131/93 mm Hg Reason For Study: CVA Ordering Physician: [facility] Performed By: Anna Guido Referring Physician: Janie Bob Interpretation Summary The left ventricular cavity is small. Proximal septal thickening is noted. There is no echo evidence for significant left ventricular outflow tract obstruction. The left ventricle is hyperdynamic. The ejection fraction is estimated to be 70-75%. The right ventricle is normal in size and function. Injection of contrast documented no interatrial shunt. No significant valvular pathology seen. Mild atherosclerotic plaque(s) in the aortic arch. The ascending aorta is mild-moderately enlarged. Assessment & Plan #. 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 The patient appears to have minimal response to TPA. Appears to have a dense left hemiparesis. He also appears to have significant lethargy, somnolence, dysphagia, and dysarthria. But slightly improved today Speech therapy was working with the patient earlier today and he has been able to safely take some orals. Further directions per them. Feeding tube was not placed yesterday. Continue with OT/PT. Case management to arrange for placement. #. Acute encephalopathy, POA. We will follow clinically. CT scan ruled out hemorrhage. Slightly improved today and is able to follow some commands and answer questions although still has fairly thick dysarthria. #. Chronic anisocoria, POA. #. Possible methamphetamine abuse. We will perform a drug screen which did come back positive for amphetamines.. DVT prophylaxis with heparin subcutaneous. Patient is presumed to be a full resuscitation Patient is admitted inpatient status with an expected length of stay of over 2 nights. VTE Mechanical Devices: Intermittant Pneumatic CD Resuscitation Status: CPR: Attempt Resuscitation Time spent 30 minutes Ananya Tapia MD Sep 30, 2016 12:55
--- NOTE | 2016-09-30 16:23 | NUR ---
NUTRITION ASSESSMENT: ASSESS: 56 YO male admitted for acute ischemic CVA with left hemiparesis s/p TPA. Pt was supposed to have NG tube placed yesterday with initiation of TF but NG tube placement was cancelled as pt is becoming more alert. ST placed pt on a stimulation diet with honey thick liquids. PMHx: unknown. LABS: Reviewed. Cr .71, Glu 101, Alb 4.2. MEDS: Reviewed. GI: No BM reported yet. CURRENT WT: 115.3 kg. IBW: 67.27 kg. DIET: Stimulation, Honey Thick liquids. no po intake reported. EST. NEEDS: 8377-2221 kcals (20-22 kcals/kg BW), 80-100 g protein (1.2-1.5 g/kg IBW) NUTRITION DIAGNOSIS: 1.) Inadequate oral intake related to decreased ability to consume sufficient energy as evidenced by current NPO/Stimulation diet x 2 days. 2.) Chewing / swallowing difficulties related to motor causes as evidenced by current need for mechanically altered diet texture, ST following. NUTRITION INTERVENTION: 1.) Will continue to await timely advancement of diet. If diet cannot be advanced and well tolerated in 24-48 hours, consider starting nutrition support. MONITOR / EVAL: Diet advancement / tolerance, PO intake, labs, nutritional status. Follow per high nutritional risk guidelines.
--- NOTE | 2016-09-30 16:57 | NUR ---
Social Work-attempted initial assessment: Data& assessment:EMR Reviewed. Pt is a 56 y/o male who was admitted on 09/28/16 for CVA per H&P. Pt's insurance is [facility] and [facility] supp and PCP Is Not listed. EMR reviewed. SW attempted to meet with pt, pt not able to be woken up. CORY placed a call to sister Annette Echevarria [phone], no answer, voicemail left requesting a return call to complete assessment. PT and ST are both pending .SW will continue to follow. Plan:SW has left message for pt's sister to discuss assessment, awaiting a return call. PT and ST are both pending .SW will continue to follow. ANIVAL Bob
--- NOTE | 2016-09-30 18:41 | NUR ---
PO intake/care refusal Pt had swallow eval and is now on a stimulation diet. Pt is doing very well with this w/ 1:1 feed, and finished entire mashed potatoes serving as well as additional pudding. Pt is very somnolent, but is rousable and can respond to questions and instruction. Pt has been refusing some care, primarily r/t movement. Pt became agitated and angry when trying to encourage moving back to bed and is very strongly refusing. Will c/t encourage and attempt, alejandro score puts this pt at high risk for skin ulcer.
--- NOTE | 2016-09-30 20:10 | NUR ---
Neuro Improvement Pt woke up this evening at about 1930. Started moving around, talking, still slurred, but opening eyes and conversing. Pt is a&ox3, still drowsy, but awake and adjusted to situation.
[2016-10-01] VITALS (7 sets, daily range): BP systolic 134–144; BP diastolic 84–90; PULSE 53–71; RESP 16–18; O2SAT 95–98
[2016-10-01] MEDS: Heparin 5,000 Unit/mL Inj SUBQ SCH ×2 (01:58→16:05)
[2016-10-01] MEDS: Dextrose 5% 0.45% NaCl 1,000 ML IV SCH ×2 (01:58→13:21)
--- NOTE | 2016-10-01 05:36 | NUR ---
NOC Activity Assume of care around 2300 from previous RN. Pt has been lethargic but is conversational. NVS noted left sided weakness upper and lower extremity. Speech slurred and left sided facial droop. Pt's VSS and has been afebrile. Intentional hourly rounding in effect.
[2016-10-01 07:00] LABS: BASOPHILS % (AUTO) 0.2 % (0-3); EOSINOPHILS % (AUTO) 2.2 % (0-5); Mean Corpuscular Hemoglobin 29.9 pg (27.0-35.0); Mean Corpuscular Volume 86.9 fL (81-100); NEUTROPHILS % (AUTO) 60.2 % (40-74); Platelet Count 120 bil/L (150-400)
--- NOTE | 2016-10-01 10:28 | NUR ---
Evaluation completed. Please go to "Notes" then click on "Assessments and Notes" (bottom left corner of screen). Then select appropriate discipline tab on top of screen.
--- NOTE | 2016-10-01 14:33 | NUR ---
Social Work-initial assessment: Data:See initial assessment. Pt is a 56 y/o male who was admitted on 09/28/16 for CVA per H&P. Pt's insurance is [employer] and [employer] and PCP is not listed. EMR reviewed. Pt's readmission score is 1. SW attempted to see pt, but pt sleeping unable to awaken. CORY placed a call to sister Annette to discuss pt, SW role explained. Annette states that she isn't pt's biological sister. Pt does have 4 siblings, but only one of them is in contact with the pt. Annette states she will try to have Emmy call SW, but Annette states she is pt's main support person. Prior to hospitalization, pt was residing in a home in [place] with roommates, per sister pt was using drugs primarily meth prior to admission. Pt normally is independent at baseline and walks and bikes for transport. Pt has no HH or SNF history. 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 SW discussed DPOA/ advanced directive this has not been completed. ST and OT have both seen pt and they are recommending inpt rehab. SW to await MD orders. Pt currently does not have discharge plan post rehab due to no family support in the area. SW will continue to follow. Assessment:Pt who is independent at baseline. Plan:SW to follow up with pt post orders from MD. Pt will need placement. SW will continue to follow. ANIVAL Bob Addendum: 10/01/16 at 1449 by ROSALEE CALZADA Amended: Links added.
--- NOTE | 2016-10-01 15:14 | PCM.PNMED ---
Subjective Date of Service Oct 01, 2016 Subjective Patient is groggy but does arouse and answer questions but does have some dysarthria present. Exam Vital Signs Vital Sign - Last Date Time Temp Pulse Resp B/P Pulse Ox O2 Delivery O2 Flow Rate FiO2 10/01/16 13:13 36.2 68 18 138/84 97 Room Air 09/28/16 08:55 2 Intake and Output 09/30/16 09/30/16 10/01/16 Cumulative From/Thru 15:00 23:00 07:00 09/28/16 08:12 - 10/01/16 06:25 Intake Total 0 ml 600 ml 742 ml 4201 ml Output Total 400 ml 300 ml 1200 ml 3125 ml Balance -400 ml 300 ml -458 ml 1076 ml Intake Oral 0 ml 600 ml 0 ml 600 ml IV Total 742 ml 3601 ml Output Urine Total 400 ml 300 ml 1200 ml 3125 ml # Bowel Movements 0 Exam Constitutional: Middle-aged male who is somewhat groggy but arouses and will speak Head: Normocephalic atraumatic except for left facial droop Neck: No adenopathy Chest: Clear to auscultation Cor: Regular rate and rhythm S1-S2 Abdomen: Soft nontender bowel sounds present Extremities: No pedal edema Neuro: He is groggy but does awaken and answers questions with dysarthric speech. Has left hemiparesis. IVs and Medications Medications Reviewed: Medications were reviewed in detail Lab and Diagnostics Laboratory Tests 72 Hours Test 09/28/16 17:53 10/01/16 06:45 Urine Color Yellow (YELLOW) Urine Appearance Clear (CLEAR,HAZY) Urine pH 5.5 (5.0-8.0) Urine Specific [place] 1.020 (1.003-1.035) Urine Protein Negativemg/dL (NEG,TRACE) Urine Glucose (UA) Negativemg/dL (NEGATIVE) Urine Ketones Negativemg/dL (NEGATIVE) Urine Occult Blood Negative (NEGATIVE) Urine Nitrite Negative (NEGATIVE) Urine Bilirubin Negative (NEGATIVE) Urine Urobilinogen Normalmg/dL (NORMAL) Urine Leukocyte Esterase Negative (NEGATIVE) Urine RBC 0-2/hpf (0-2) Urine WBC 0-5/hpf (0-5) Urine Epithelial Cells Occasional/hpf (NONE-MOD) Urine Crystals None seen (NONE SEEN) Urine Bacteria Few/hpf (NONE-FEW) Urine Hyaline Casts None/lpf (NONE) Urine Granular Casts None seen (NONE SEEN) Urine Waxy Casts None seen (NONE SEEN) Urine Red Blood Cell Casts None seen (NONE SEEN) Urine White Blood Cell Casts None seen (NONE SEEN) Urine Mucus Present (None Seen) Urine Trichomonas None seen (NONE SEEN) Urine Yeast None (NONE SEEN) Urinalysis Comment None Urine Culture Reflexed Not indicated Urine Opiates Screen Negative Urine Methadone Screen Negative Urine Barbiturates Screen Negative Urine Amphetamines Screen Positive Urine Benzodiazepines Screen Negative Urine Cocaine Metabolite Screen Negative Urine Cannabinoids Screen Negative White Blood Count 4.5th/mm3 (3.8-10.1) Red Blood Count 4.81mil/mm3 (4.40-5.80) Hemoglobin 14.4g/dL (13.8-17.2) Hematocrit 41.8% (41.0-50.0) Mean Corpuscular Volume 86.9fL (81-100) Mean Corpuscular Hemoglobin 29.9pg (27.0-35.0) Mean Corpuscular Hemoglobin Concent 34.4% (32.0-37.0) Red Cell Distribution Width 13.9% (12.3-15.4) Platelet Count 120bil/L (150-400) Neutrophils (%) (Auto) 60.2% (40-74) Lymphocytes (%) (Auto) 26.4% (14-46) Monocytes (%) (Auto) 11.0% (4-12) Eosinophils (%) (Auto) 2.2% (0-5) Basophils (%) (Auto) 0.2% (0-3) Sodium Level 137mEq/L (134-144) Potassium Level 4.0mEq/L (3.5-5.2) Chloride Level 100mEq/L (97-108) Carbon Dioxide Level 25mmol/L (18-29) Blood Urea Nitrogen 7mg/dL (6-24) Creatinine 0.46mg/dL (0.76-1.27) Estimat Glomerular Filtration Rate 201mL/min (>59) Glucose Level 118mg/dL (60-99) Calcium Level 8.4mg/dL (8.5-10.1) Total Bilirubin 0.4mg/dL (0.0-1.2) Aspartate Amino Transf (AST/SGOT) 15U/L (0-50) Alanine Aminotransferase (ALT/SGPT) 16U/L (0-44) Alkaline Phosphatase 64U/L (25-150) Total Protein 5.7g/dL (6.4-8.4) Albumin 3.6g/dL (3.4-5.0) Result Diagram: 10/01/1645 10/01/16 0645 X-Rays, CTs and MRIs Date of Service: 09/28/16 0803 PROCEDURE: CT BRAIN TPA INDICATIONS: STROKE COMPARISON: None. TECHNIQUE: Axial 5 mm thin sections through the head were obtained without contrast FINDINGS: No sign of stroke or hemorrhage, no thrombus within the skull base arterial vasculature is identified. Minimal mucosal thickening involves the ethmoid air cells bilaterally symmetric. IMPRESSION: No contraindication to TPA administration found. This information was immediately called directly to the emergency room physician caring for the patient at 8:29. Dictated by: Naveen Reed M.D. on 09/28/2016 at 8:30 Approved by: Naveen Reed M.D. on 09/28/2016 at 8:34 Date of Service: 09/28/16 0845 PROCEDURE: CT ANGIO BRAIN NECK TPA INDICATIONS: Stroke symptoms, improving. TECHNIQUE: Pre-contrast 4.5 mm thick sections acquired from the foramen magnum to the vertex. After the administration of intravenous contrast, 1 mm thick sections acquired from the aortic arch through the [place] of [place]rade. Post-contrast 4.5 mm thick sections then re-acquired from the foramen magnum to the vertex. 3- dimensional lkpompi-guwtavula-ukzpuflllo (MIP) and/or volume rendering reformats were acquired of the central intracranial vasculature and neck separately. For radiation dose reduction, the following was used: automated exposure control, adjustment of mA and/or kV according to patient size. COMPARISON: [facility], CT, CT BRAIN TPA, 09/28/2016, 8:20. FINDINGS: Image quality: Excellent. BRAIN: CSF spaces: Ventricles are normal in size and shape. Basal cisterns are patent. No extra-axial fluid collections. Brain: No midline shift. No intracranial bleeds or masses. Roldan-white matter interface appears intact. Skull and face: Calvarium and facial bones appear intact, without suspicious lesions. Orbits appear normal. Sinuses: Sinuses and mastoids are clear. HEAD CT ANGIOGRAPHY: Anterior circulation: Intracranial internal carotid arteries are normal in size and flow. The flow within the paired anterior cerebral arteries is normal and symmetric. The flow within the middle cerebral arteries is normal and symmetric. The anterior communicating artery is seen. No aneurysms are seen. Posterior circulation: Visualized portions of the vertebral arteries demonstrate normal caliber, and join to form a normal appearing basilar artery. Flow within the posterior cerebral arteries is normal and symmetric. No aneurysms are seen. NECK CT ANGIOGRAPHY: Carotid system: The great vessels demonstrate a conventional anatomy as they arise from the aortic arch. The origins of the common carotid arteries appear patent. The common carotid arteries demonstrate normal caliber and courses. The bifurcation regions are both widely patent. The internal carotid arteries demonstrate normal calibers and courses. Posterior circulation: The origins of the vertebral arteries both appear widely patent. The more superior extracranial portions of both vertebral arteries also demonstrate normal courses and calibers. They join to form a normal appearing basilar artery. Soft tissues: Visualized neck soft tissues demonstrate no suspicious abnormalities. A small focus of increased radiodensity at the right forehead area is incidentally noted, possibly a minimal contusion from recent trauma but a small focus of scar tissue also could produce the appearance. Bones: No suspicious bony lesions. Visualized cervical spine appears normally aligned. IMPRESSION: No aneurysm or embolus seen, and no area of vascular stenosis or dissection identified. Findings immediately called to the ordering emergency room physician caring for the patient. Dictated by: Naveen Reed M.D. on 09/28/2016 at 10:08 Approved by: Naveen Reed M.D. on 09/28/2016 at 10:14 PROCEDURE: MRI BRAIN WITHOUT CONTRAST ([id number]) INDICATIONS: Post tPA IF CTA NOT done w/tPA Infusion TECHNIQUE: Non-contrast axial T1 spin echo, axial T2 fast spin echo, sagittal and axial FLAIR, coronal T2 fast spin echo, axial gradient echo, axial diffusion and ADC through the brain. COMPARISON: None. FINDINGS: Image quality: Motion degraded examination.. CSF spaces: Ventricles appear symmetric in size and shape. Basal cisterns are patent. No extra-axial fluid collections. Brain: No intracranial bleeds or mass effects. There is cerebral volume loss for age. There are periventricular and deep white matter chronic small vessel ischemic changes. Brainstem appears normal. Diffusion-weighted images show acute ischemia within the right basal ganglia region involving the posterior limb of the right internal capsule, and the right frontal periventricular white matter/centrum semiovale. Normal intravascular flow voids are present. Skull and face: Calvarial bone marrow is normal in signal. Orbits are normal. Sinuses: Sinuses and mastoids are clear. IMPRESSION: Acute ischemia involving the right basal ganglia, and right centrum semiovale as above. Dictated by: Donny Woo M.D. on 09/29/2016 at 13:15 Approved by: Donny Woo M.D. on 09/29/2016 at 13:22 Cardiac Echo Impressions Echocardiogram Report Name: GRECIA NUGENT Study Date: 09/29/2016 Height: 67 in Hospital Exam Location: [facility] Weight: 254 lb Gender: Male BSA: 2.2 m2 : 1960 Age: 56 yrs BP: 131/93 mm Hg Reason For Study: CVA Ordering Physician: [facility]PITALIST [facility] Performed By: Anna Guido Referring Physician: Janie Bob Interpretation Summary The left ventricular cavity is small. Proximal septal thickening is noted. There is no echo evidence for significant left ventricular outflow tract obstruction. The left ventricle is hyperdynamic. The ejection fraction is estimated to be 70-75%. The right ventricle is normal in size and function. Injection of contrast documented no interatrial shunt. No significant valvular pathology seen. Mild atherosclerotic plaque(s) in the aortic arch. The ascending aorta is mild-moderately enlarged. Assessment & Plan #. 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 The patient appears to have minimal response to TPA. Appears to have a dense left hemiparesis. He also appears to have significant lethargy, somnolence, dysphagia, and dysarthria. But slightly improved today Speech therapy was working with the patient earlier on September 30 and again on October 01 and he has been able to safely take some orals. Further directions per them. Feeding tube was not placed earlier in this admission. Continue with OT/PT. Case management to arrange for placement. #. Acute encephalopathy, POA. We will follow clinically. CT scan ruled out hemorrhage. Slightly improved today and is able to follow some commands and answer questions although still has fairly thick dysarthria. #. Chronic anisocoria, POA. #. Possible methamphetamine abuse. We will perform a drug screen which did come back positive for amphetamines.. DVT prophylaxis with heparin subcutaneous. Patient is presumed to be a full resuscitation Patient is admitted inpatient status with an expected length of stay of over 2 nights. VTE Mechanical Devices: Intermittant Pneumatic CD Resuscitation Status: CPR: Attempt Resuscitation Time spent 20 minutes Ananya Tapia MD Oct 01, 2016 15:14
[2016-10-01] MEDS: 0.9% Sodium Chloride 1,000 ML IV SCH (16:04)
--- NOTE | 2016-10-01 16:47 | NUR ---
Evaluation completed. Please go to "Notes" then click on "Assessments and Notes" (bottom left corner of screen). Then select appropriate discipline tab on top of screen.
[2016-10-02 01:25] VITALS: BP 152/97; PULSE 53; RESP 18; O2SAT 99
--- NOTE | 2016-10-02 01:36 | NUR ---
Somnolence When assessing at beginning and mid-shift, rubbed shoulder and announced name several times to gain attention and prompt for neuro checks. Patient indicated "what time is it" and after learning at beginning of shift it was 21:00, indicated "I can't believe I slept all day", then promptly went back to sleep. Adjusted bruce-chair for repositions and kept SCD's running.
[2016-10-02] MEDS: 0.9% Sodium Chloride 1,000 ML IV SCH (02:13)
[2016-10-02] MEDS: Heparin 5,000 Unit/mL Inj SUBQ SCH ×2 (02:13→15:41)
[2016-10-02 05:30] VITALS: BP 129/86; PULSE 54; RESP 18; O2SAT 94
[2016-10-02 09:33] VITALS: BP 131/87; PULSE 77; RESP 18; O2SAT 99
[2016-10-02 10:27] VITALS: PULSE 45
--- NOTE | 2016-10-02 15:04 | NUR ---
NUTRITION FOLLOW-UP: ASSESS: 56 YO male admitted for acute ischemic CVA with left hemiparesis s/p TPA. ST advanced diet today to dysphagia mechanical, nectar thick liquids and pt ate 40% of lunch. PMHx: unknown. LABS: Reviewed. Cr 0.45, Alb 3.6. MEDS: Reviewed. GI: No BM reported. CURRENT WT: 115.3 kg. IBW: 67.27 kg. DIET: Dysphagia mechanical, nectar thick liquids. PO intake 40% x 1 meal. EST. NEEDS: 7825-0706 kcals (20-22 kcals/kg BW), 80-100 g protein (1.2-1.5 g/kg IBW) NUTRITION DIAGNOSIS: 1.) Inadequate oral intake related to decreased ability to consume sufficient energy as evidenced by current NPO/Stimulation diet x 2 days--IMPROVING, DIET ADV TODAY. 2.) Chewing / swallowing difficulties related to motor causes as evidenced by current need for mechanically altered diet texture, ST following--PERSIST. NUTRITION INTERVENTION: 1.) Will add mighty shakes all trays to encourage increased/adequate po intake. MONITOR / EVAL: Diet advancement / tolerance, PO intake, labs, nutritional status. Follow per moderate nutritional risk guidelines.
--- NOTE | 2016-10-02 16:40 | NUR ---
Social Work-continued d/c planning: Data:EMR reviewed. Pt is on day 4 of hospitalization for CVA per H&P. Pt is not medically stable. MD order received for inpt rehab. ST/OT/PT recommending inpt rehab. SW followed up with at bedside, pt alert and oriented x3. SW explained recommendation of inpt rehab and explained two facilities are either [facility] in [place] or [facility] in [place]. Pt is agreeable to referral to [place]. CORY faxed in referral to [facility] rehab and spoke with Kaila [phone]. Kaila states she will show referral to medical office asst and get back in touch with SW tomorrow. Expedited referral to the [facility] also faxed in. CORY will continue to follow. Assessment:Pt who would benefit from inpt rehab. Plan:Referral has been made to [facility]. CORY will continue to follow. ANIVAL Bob
[2016-10-02 17:25] VITALS: BP 147/96; PULSE 60; RESP 18; O2SAT 94
--- NOTE | 2016-10-02 21:11 | PCM.PNMED ---
Subjective Date of Service Oct 02, 2016 Subjective 56 yo WM here on hosp day #4 after suffering a R basal ganglia stroke, left hemiparesis and slurred speech. He is post-tpA. Urine tox positive for meth. Had some issues with swallowing but latest report is he is doing fine, taking medications. No PEG tube is placed. He does not seem to be on a statin. He is not a diabetic, lipid panel appears wnl. No hx of afib. He was sleeping this evening when he was visited, and woke up initially his speech was clear but later on more garbled. He took pills me that he walked with PT OT, not yet walking by himself. He has no other concerns though he does not feel great Exam Vital Signs Vital Sign - Last Date Time Temp Pulse Resp B/P Pulse Ox O2 Delivery O2 Flow Rate FiO2 10/02/16 05:30 36.5 54 18 129/86 94 Room Air 09/28/16 08:55 2 Intake and Output 10/01/16 10/01/16 10/02/16 Cumulative From/Thru 15:00 23:00 07:00 09/28/16 08:12 - 10/01/16 18:19 Intake Total 1011 ml 5212 ml Output Total 1350 ml 4475 ml Balance -339 ml 737 ml Intake Oral 100 ml 700 ml IV Total 911 ml 4512 ml Output Urine Total 1350 ml 4475 ml # Bowel Movements 0 Exam Constitutional obese middle-age male who is in no acute distress but a bit drowsy Head: Left facial droop Chest: Clear to auscultation Cor: Regular rate and rhythm S1-S2 Abdomen: Soft nontender bowel sounds present Extremities trace bilateral pedal edema Neuro he is drowsy but does awaken and answers questions appropriately. Has left hemiparesis. With some dysarthria. Positive for facial asymmetry. He has no altered sensation in the left lower extremity and left upper extremity MSK: Decreased strength in left hand tick sewer, left lower extremity strength. IVs and Medications Medications Reviewed: Medications were reviewed in detail Lab and Diagnostics Laboratory Tests Test 10/02/16 06:00 Sodium Level 142mEq/L (134-144) Potassium Level 4.3mEq/L (3.5-5.2) Chloride Level 104mEq/L (97-108) Carbon Dioxide Level 26mmol/L (18-29) Blood Urea Nitrogen 7mg/dL (6-24) Creatinine 0.45mg/dL (0.76-1.27) Estimat Glomerular Filtration Rate 206mL/min (>59) Glucose Level 94mg/dL (60-99) Calcium Level 8.7mg/dL (8.5-10.1) Total Bilirubin 0.4mg/dL (0.0-1.2) Aspartate Amino Transf (AST/SGOT) 44U/L (0-50) Alanine Aminotransferase (ALT/SGPT) 40U/L (0-44) Alkaline Phosphatase 72U/L (25-150) Total Protein 5.9g/dL (6.4-8.4) Albumin 3.6g/dL (3.4-5.0) Microbiology 09/28/16 MRSA (PCR) - Final, Complete Result Diagram: 10/01/1664410/01/1645 X-Rays, CTs and MRIs Date of Service: 09/28/16 0803 PROCEDURE: CT BRAIN TPA INDICATIONS: STROKE COMPARISON: None. TECHNIQUE: Axial 5 mm thin sections through the head were obtained without contrast FINDINGS: No sign of stroke or hemorrhage, no thrombus within the skull base arterial vasculature is identified. Minimal mucosal thickening involves the ethmoid air cells bilaterally symmetric. IMPRESSION: No contraindication to TPA administration found. This information was immediately called directly to the emergency room physician caring for the patient at 8:29. Dictated by: Naveen Reed M.D. on 09/28/2016 at 8:30 Approved by: Naveen Reed M.D. on 09/28/2016 at 8:34 Date of Service: 09/28/1645 PROCEDURE: CT ANGIO BRAIN NECK TPA INDICATIONS: Stroke symptoms, improving. TECHNIQUE: Pre-contrast 4.5 mm thick sections acquired from the foramen magnum to the vertex. After the administration of intravenous contrast, 1 mm thick sections acquired from the aortic arch through the [place] of [place]. Post-contrast 4.5 mm thick sections then re-acquired from the foramen magnum to the vertex. 3- dimensional begvrvw-nhleuxywk-izhlqbinsp (MIP) and/or volume rendering reformats were acquired of the central intracranial vasculature and neck separately. For radiation dose reduction, the following was used: automated exposure control, adjustment of mA and/or kV according to patient size. COMPARISON: [facility], CT, CT BRAIN TPA, 09/28/2016, 8:20. FINDINGS: Image quality: Excellent. BRAIN: CSF spaces: Ventricles are normal in size and shape. Basal cisterns are patent. No extra-axial fluid collections. Brain: No midline shift. No intracranial bleeds or masses. [place]old[place]-white matter interface appears intact. Skull and face: Calvarium and facial bones appear intact, without suspicious lesions. Orbits appear normal. Sinuses: Sinuses and mastoids are clear. HEAD CT ANGIOGRAPHY: Anterior circulation: Intracranial internal carotid arteries are normal in size and flow. The flow within the paired anterior cerebral arteries is normal and symmetric. The flow within the middle cerebral arteries is normal and symmetric. The anterior communicating artery is seen. No aneurysms are seen. Posterior circulation: Visualized portions of the vertebral arteries demonstrate normal caliber, and join to form a normal appearing basilar artery. Flow within the posterior cerebral arteries is normal and symmetric. No aneurysms are seen. NECK CT ANGIOGRAPHY: Carotid system: The great vessels demonstrate a conventional anatomy as they arise from the aortic arch. The origins of the common carotid arteries appear patent. The common carotid arteries demonstrate normal caliber and courses. The bifurcation regions are both widely patent. The internal carotid arteries demonstrate normal calibers and courses. Posterior circulation: The origins of the vertebral arteries both appear widely patent. The more superior extracranial portions of both vertebral arteries also demonstrate normal courses and calibers. They join to form a normal appearing basilar artery. Soft tissues: Visualized neck soft tissues demonstrate no suspicious abnormalities. A small focus of increased radiodensity at the right forehead area is incidentally noted, possibly a minimal contusion from recent trauma but a small focus of scar tissue also could produce the appearance. Bones: No suspicious bony lesions. Visualized cervical spine appears normally aligned. IMPRESSION: No aneurysm or embolus seen, and no area of vascular stenosis or dissection identified. Findings immediately called to the ordering emergency room physician caring for the patient. Dictated by: Naveen Reed M.D. on 09/28/2016 at 10:08 Approved by: Naveen Reed M.D. on 09/28/2016 at 10:14 PROCEDURE: MRI BRAIN WITHOUT CONTRAST ([id number]) INDICATIONS: Post tPA IF CTA NOT done w/tPA Infusion TECHNIQUE: Non-contrast axial T1 spin echo, axial T2 fast spin echo, sagittal and axial FLAIR, coronal T2 fast spin echo, axial gradient echo, axial diffusion and ADC through the brain. COMPARISON: None. FINDINGS: Image quality: Motion degraded examination.. CSF spaces: Ventricles appear symmetric in size and shape. Basal cisterns are patent. No extra-axial fluid collections. Brain: No intracranial bleeds or mass effects. There is cerebral volume loss for age. There are periventricular and deep white matter chronic small vessel ischemic changes. Brainstem appears normal. Diffusion-weighted images show acute ischemia within the right basal ganglia region involving the posterior limb of the right internal capsule, and the right frontal periventricular white matter/centrum semiovale. Normal intravascular flow voids are present. Skull and face: Calvarial bone marrow is normal in signal. Orbits are normal. Sinuses: Sinuses and mastoids are clear. IMPRESSION: Acute ischemia involving the right basal ganglia, and right centrum semiovale as above. Dictated by: Donny Woo M.D. on 09/29/2016 at 13:15 Approved by: Donny Woo M.D. on 09/29/2016 at 13:22 Cardiac Echo Impressions Echocardiogram Report Name: GRECIA NUGENT Study Date: 09/29/2016 Height: 67 in Hospital Exam Location: [facility] Weight: 254 lb Gender: Male BSA: 2.2 m2 : 1960 Age: 56 yrs BP: 131/93 mm Hg Reason For Study: CVA Ordering Physician: SABRINA [facility] Performed By: Anna Guido Referring Physician: Janie Bob Interpretation Summary The left ventricular cavity is small. Proximal septal thickening is noted. There is no echo evidence for significant left ventricular outflow tract obstruction. The left ventricle is hyperdynamic. The ejection fraction is estimated to be 70-75%. The right ventricle is normal in size and function. Injection of contrast documented no interatrial shunt. No significant valvular pathology seen. Mild atherosclerotic plaque(s) in the aortic arch. The ascending aorta is mild-moderately enlarged. Assessment & Plan #. 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 --The patient appears to have minimal response to TPA. Appears to have a dense left hemiparesis. He also appears to have significant lethargy, somnolence, dysphagia, and dysarthria. -- Speech therapy was working with the patient earlier on September 30 and again on October 01 and he has been able to safely take some orals. Further directions per them. Feeding tube was not placed/needed -- Continue with OT/PT. patient walked with physical therapy for 15 feet -- Case management to arrange for placement. -- Lipid panel shooed CHOL 144 LDL 100 TG 65 HDL 31. Started him on atorvastatin 10 mg daily at bedtime -- Plan to order Holter monitor at discharge #. Acute encephalopathy, POA. -- CT scan ruled out hemorrhage. Slightly improved today and is able to follow some commands and answer questions although still has fairly thick dysarthria. #. Chronic anisocoria, POA. #. Possible methamphetamine abuse. -- drug screen positive for amphetamines.. DVT prophylaxis with heparin subcutaneous. Patient is presumed to be a full resuscitation Patient is admitted inpatient status with an expected length of stay of over 2 nights. No change in management for 10/02/16 VTE Mechanical Devices: Intermittant Pneumatic CD Resuscitation Status: CPR: Attempt Resuscitation Time spent 25 min Carlie Shannon DO Oct 02, 2016 05:37
[2016-10-02 22:00] VITALS: BP 164/100; PULSE 64; RESP 18; O2SAT 96
[2016-10-03] VITALS (8 sets, daily range): BP systolic 131–148; BP diastolic 82–92; PULSE 54–69; RESP 18; O2SAT 92–99
[2016-10-03] MEDS: Heparin 5,000 Unit/mL Inj SUBQ SCH ×2 (03:11→14:22)
--- NOTE | 2016-10-03 04:51 | NUR ---
Care/Communication Pt rested in chair overnight. Refuses bed, "it isn't comfortable, I get stuck when I try to turn over". No c/o pain during this shift. He uses call light appropriately and asks for assistance with adjusting the chair. Some confusion upon awakening at night with what time of day it was, and said he's "sleeping all day because they keep those window blinds closed". Was able to be reoriented with explanation that it was 0200 and the blinds were open, its just dark outside, that might be why it appears the blinds are closed. Mumbles in speech, grumbles. Left sided weakness and decreased movement. Frequent rounding continues. Addendum: 10/03/16 at 0723 by TYSHAWN TIWARI RN Pt became very upset and stomping feet on foot rest of chair, tossing pillows and screaming out. He stated that he is bored and wanted to be entertained, disliked the "poor cable channels" and had nothing to do. I listened to his concerns and explained that although this must be extremely frustrating for him to be here, the goal is to get better, not to be entertained, and suggested family/friends bring him something to help, call someone, find a better channel on TV. But that yelling at nurses and HIGH VALUE ASSOCIATE's was not appropriate. He apologized and we discussed options for expressing his needs.
--- NOTE | 2016-10-03 11:16 | NUR ---
INPATIENT REHAB REFERRAL : Called and left a message for Kaila [phone] and let her know I was following up on acceptance for this patient. Updated WHEEL FITTER Addendum: 10/03/16 at 1303 by QUINCY SPARROW CM [facility] is not able to take this patient they think that patient is not needing inpatient rehab at this time and needs Long-Term. They also think he will end up needing intermediate designer care in and [facility] setting. Updated WHEEL FITTER
--- NOTE | 2016-10-03 14:04 | NUR ---
Constipation/New Bed No BM since [employer]OT[employer]IE[employer]ER per computer, asked in rounds to order senna/miralax, senna bid PRN ordered, tab x 1 admin, plan to give thickened prune juice. Continuing to monitor. No c/o discomfort. Patient dislikes mechanical bed, prefers to sit in bruce chair 24hrs, bowel stimulators being started, explained when the time comes it will be difficult to get him on the bed wakefield in the chair, understood. Foam/non-mechanical bed requested from security. Plan to transfer patient via slider board. Addendum: 10/03/16 at 1622 by XOCHITL CRAWLEY RN Addendum: Foam beds not available at this time, transfer not made.
--- NOTE | 2016-10-03 14:53 | NUR ---
Social Work-continued d/c planning: Data:EMR reviewed. Pt is on day 5 of hospitalization for CVA per H&P. Pt is not medically stable. CORY updated by UR specialist that [facility] is not able to accept pt. order received for SNF placement. SW met with pt at bedside, SW role explained. SW explained that pt has been declined to go to inpt rehab. SW explained the recommendation of SNF. Pt is agreeable, SNF choice list provided. Pt is agreeable to local SNF's being faxed. CORY sent referral to [facility], [facility], and [facility], access provided in [employer] and [employer] and [employer] faxed. CORY called pt's sister Annette [phone] and discussed placement, she is agreeable to plan and would like to be kept updated. Paperwork in the chart. SW will continue to follow. Assessment:Pt who would benefit from SNF. Plan:Referrals have been made to [facility], [facility], and [facility]. Paperwork in the chart. SW will continue to follow. ANIVAL Bob
--- NOTE | 2016-10-03 15:16 | NUR ---
SHELTER TRANSFER : [facility] will accept patient when ready.
--- NOTE | 2016-10-03 15:46 | PCM.PNMED ---
Subjective Date of Service Oct 03, 2016 Subjective Patient is seen and examined. He slept well last night . States he does not try to walk because he needs 2 people to walk him. He has no other concerns Exam Vital Signs Vital Sign - Last Date Time Temp Pulse Resp B/P Pulse Ox O2 Delivery O2 Flow Rate FiO2 10/03/16 13:11 Room Air 10/03/16 12:20 36.7 68 18 142/92 98 09/28/16 08:55 2 Intake and Output 10/02/16 10/02/16 10/03/16 Cumulative From/Thru 15:00 23:00 07:00 09/28/16 08:12 - 10/03/16 06:30 Intake Total 0 ml 351 ml 150 ml 6930 ml Output Total 750 ml 875 ml 975 ml 7075 ml Balance -750 ml -524 ml -825 ml -145 ml Intake Oral 0 ml 351 ml 150 ml 1201 ml IV Total 5729 ml Output Urine Total 750 ml 875 ml 975 ml 7075 ml # Bowel Movements 0 0 Exam Constitutional obese middle-age male who is in no acute distress but a bit drowsy Head: Left facial droop Chest: Clear to auscultation Cor: Regular rate and rhythm S1-S2 Abdomen: Soft nontender bowel sounds present Extremities trace bilateral pedal edema Neuro he is drowsy but does awaken and answers questions appropriately. Has left hemiparesis. With some dysarthria. Positive for facial asymmetry. 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 IVs and Medications Medications Reviewed: Medications were reviewed in detail Lab and Diagnostics Result Diagram: 10/01/16 0645 10/02/16 0600 X-Rays, CTs and MRIs Date of Service: 09/28/16 0803 PROCEDURE: CT BRAIN TPA INDICATIONS: STROKE COMPARISON: None. TECHNIQUE: Axial 5 mm thin sections through the head were obtained without contrast FINDINGS: No sign of stroke or hemorrhage, no thrombus within the skull base arterial vasculature is identified. Minimal mucosal thickening involves the ethmoid air cells bilaterally symmetric. IMPRESSION: No contraindication to TPA administration found. This information was immediately called directly to the emergency room physician caring for the patient at 8:29. Dictated by: Naveen Reed M.D. on 09/28/2016 at 8:30 Approved by: Naveen Reed M.D. on 09/28/2016 at 8:34 Date of Service: 09/28/16 0845 PROCEDURE: CT ANGIO BRAIN NECK TPA INDICATIONS: Stroke symptoms, improving. TECHNIQUE: Pre-contrast 4.5 mm thick sections acquired from the foramen magnum to the vertex. After the administration of intravenous contrast, 1 mm thick sections acquired from the aortic arch through the [place]. Post-contrast 4.5 mm thick sections then re-acquired from the foramen magnum to the vertex. 3- dimensional ikpuzbx-awunlsrne-hbekjwitgc (MIP) and/or volume rendering reformats were acquired of the central intracranial vasculature and neck separately. For radiation dose reduction, the following was used: automated exposure control, adjustment of mA and/or kV according to patient size. COMPARISON: [facility], CT, CT BRAIN TPA, 09/28/2016, 8:20. FINDINGS: Image quality: Excellent. BRAIN: CSF spaces: Ventricles are normal in size and shape. Basal cisterns are patent. No extra-axial fluid collections. Brain: No midline shift. No intracranial bleeds or masses. Roldan-white matter interface appears intact. Skull and face: Calvarium and facial bones appear intact, without suspicious lesions. Orbits appear normal. Sinuses: Sinuses and mastoids are clear. HEAD CT ANGIOGRAPHY: Anterior circulation: Intracranial internal carotid arteries are normal in size and flow. The flow within the paired anterior cerebral arteries is normal and symmetric. The flow within the middle cerebral arteries is normal and symmetric. The anterior communicating artery is seen. No aneurysms are seen. Posterior circulation: Visualized portions of the vertebral arteries demonstrate normal caliber, and join to form a normal appearing basilar artery. Flow within the posterior cerebral arteries is normal and symmetric. No aneurysms are seen. NECK CT ANGIOGRAPHY: Carotid system: The great vessels demonstrate a conventional anatomy as they arise from the aortic arch. The origins of the common carotid arteries appear patent. The common carotid arteries demonstrate normal caliber and courses. The bifurcation regions are both widely patent. The internal carotid arteries demonstrate normal calibers and courses. Posterior circulation: The origins of the vertebral arteries both appear widely patent. The more superior extracranial portions of both vertebral arteries also demonstrate normal courses and calibers. They join to form a normal appearing basilar artery. Soft tissues: Visualized neck soft tissues demonstrate no suspicious abnormalities. A small focus of increased radiodensity at the right forehead area is incidentally noted, possibly a minimal contusion from recent trauma but a small focus of scar tissue also could produce the appearance. Bones: No suspicious bony lesions. Visualized cervical spine appears normally aligned. IMPRESSION: No aneurysm or embolus seen, and no area of vascular stenosis or dissection identified. Findings immediately called to the ordering emergency room physician caring for the patient. Dictated by: Naveen Reed M.D. on 09/28/2016 at 10:08 Approved by: Naveen Reed M.D. on 09/28/2016 at 10:14 PROCEDURE: MRI BRAIN WITHOUT CONTRAST ([id number]) INDICATIONS: Post tPA IF CTA NOT done w/tPA Infusion TECHNIQUE: Non-contrast axial T1 spin echo, axial T2 fast spin echo, sagittal and axial FLAIR, coronal T2 fast spin echo, axial gradient echo, axial diffusion and ADC through the brain. COMPARISON: None. FINDINGS: Image quality: Motion degraded examination.. CSF spaces: Ventricles appear symmetric in size and shape. Basal cisterns are patent. No extra-axial fluid collections. Brain: No intracranial bleeds or mass effects. There is cerebral volume loss for age. There are periventricular and deep white matter chronic small vessel ischemic changes. Brainstem appears normal. Diffusion-weighted images show acute ischemia within the right basal ganglia region involving the posterior limb of the right internal capsule, and the right frontal periventricular white matter/centrum semiovale. Normal intravascular flow voids are present. Skull and face: Calvarial bone marrow is normal in signal. Orbits are normal. Sinuses: Sinuses and mastoids are clear. IMPRESSION: Acute ischemia involving the right basal ganglia, and right centrum semiovale as above. Dictated by: Donny Woo M.D. on 09/29/2016 at 13:15 Approved by: Donny Woo M.D. on 09/29/2016 at 13:22 Cardiac Echo Impressions Echocardiogram Report Name: GRECIA NUGENT Study Date: 09/29/2016 Height: 67 in Hospital Exam Location: [facility] Weight: 254 lb Gender: Male BSA: 2.2 m2 : 1960 Age: 56 yrs BP: 131/93 mm Hg Reason For Study: CVA Ordering Physician: HOSPITALIST [facility] Performed By: Anna Guido Referring Physician: [facility] Interpretation Summary The left ventricular cavity is small. Proximal septal thickening is noted. There is no echo evidence for significant left ventricular outflow tract obstruction. The left ventricle is hyperdynamic. The ejection fraction is estimated to be 70-75%. The right ventricle is normal in size and function. Injection of contrast documented no interatrial shunt. No significant valvular pathology seen. Mild atherosclerotic plaque(s) in the aortic arch. The ascending aorta is mild-moderately enlarged. Assessment & Plan #. 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 --The patient appears to have minimal response to TPA. Appears to have a dense left hemiparesis. He also appears to have significant lethargy, somnolence, dysphagia, and dysarthria. -- Speech therapy was working with the patient earlier on September 30 and again on October 01 and he has been able to safely take some orals. Further directions per them. Feeding tube was not placed/needed -- Continue with OT/PT. patient walked with physical therapy for 15 feet. Still needing two person assist for transfer, commode. Current Discharge Recommendations [facility], [facility]patient Rehab -- Case management to arrange for placement. -- Lipid panel shooed CHOL 144 LDL 100 TG 65 HDL 31. Started him on atorvastatin 10 mg daily at bedtime -- Discontinued labetalol when necessary orders -- He does have mild atherosclerotic plaques noted in the aortic arch. -- Ordered hypercoagulation panel in the absence of any other strong etiologies for his stroke -- Plan to order Holter monitor at discharge, we will consider CT chest/ abdominal pelvic to rule out malignancy of the reason for his stroke Hypertension, active -- Patient has no home medication. -- Started him on lisinopril 5 mg daily by mouth #. Acute encephalopathy, POA. -- Stable. #. Chronic anisocoria, POA. -- Stable # methamphetamine abuse. -- drug screen positive for amphetamines.. DVT prophylaxis with heparin subcutaneous. Patient is presumed to be a full resuscitation Patient is admitted inpatient status with an expected length of stay of over 2 nights. No change in management for 10/02/16 VTE Mechanical Devices: Intermittant Pneumatic CD Resuscitation Status: CPR: Attempt Resuscitation Time spent 25 minutes Carlie Shannon DO Oct 03, 2016 15:46 nights. No change in management for 10/02/16 VTE Mechanical Devices: Intermittant Pneumatic CD Resuscitation Status: CPR: Attempt Resuscitation Carlie Shannon DO Oct 03, 2016 15:46
--- NOTE | 2016-10-03 16:20 | NUR ---
[facility] has declined Pt. Maryann Maddox to review with director. Darleen Rush,ELECTRIC BLANKET WIRER
--- NOTE | 2016-10-03 17:05 | NUR ---
CORY received a call from Susy at [facility], Susy states they can accept pt, but she would still like Annette to come and complete onsight. CORY will continue to follow. ANIVAL Bob
--- NOTE | 2016-10-03 17:05 | NUR ---
Maryann Maddox to complete onsight tomorrow. ANIVAL Bob
[2016-10-04] VITALS (8 sets, daily range): BP systolic 112–133; BP diastolic 75–84; PULSE 52–68; RESP 16–18; O2SAT 94–98
[2016-10-04] MEDS: Heparin 5,000 Unit/mL Inj SUBQ SCH ×2 (02:00→13:11)
--- NOTE | 2016-10-04 04:19 | NUR ---
Activity Patient alert to person place and time, and follows commands appropriately. Denies any pain, CP, or SOB. Frequent repositioning from chair to bed to help patient stay comfortable. 2 person assist with gait belt is necessary for transfers. Left arm drifts/falls within 10 secs, and so does his left leg. 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 Able to take evening medications crushed in applesauce, with no signs of aspiration. Wolf is draining yellow urine to gravity, and IV is SL. [place] alarm on. Will continue to monitor and continue Q1 hour checks.
--- NOTE | 2016-10-04 13:17 | NUR ---
Wolf Cath DC'd Patient had order to removed Wolf catheter. Nurse removed Wolf catheter at 1117. Patient is voiding spontaneously using urinal.
--- NOTE | 2016-10-04 14:04 | NUR ---
Social Work: Readiness for d/c Data: Pt is on day 6 of hospitalization. EMR reviewed, pt discussed in rounds. MD states pt likely to d/c today or tomorrow. CLINICAL PROFESSOR spoke with [facility] Annette Morton completed onsite visit today and they spoke with pt's contact and confirmed d/c plan from their facility. They can accept pt when medically stable. CLINICAL PROFESSOR will continue to follow. Assessment: Pt who is independent at baseline, hx of meth use. Currently not capable of self care. Plan: Pt will d/c to [facility] when medically stable, likely tomorrow per . CLINICAL PROFESSOR will continue to follow. ANIVAL Layton
[2016-10-04] MEDS ORDERED: LISI-571 PO (23:43)
[2016-10-04] MEDS ORDERED: ATOR10TA66 PO (23:43)
[2016-10-04] MEDS ORDERED: ASPI325T32 PO (23:43)
--- NOTE | 2016-10-04 23:47 | PCM.PNMED ---
Subjective Date of Service Oct 04, 2016 Subjective Patient is sleeping in the room has usually, when he was woken up he became irritated. He says is frustrated because he has been sleeping too much, and he wants the staff to wake him up occasionally, states he is not sad but his bored as that is nothing to do most of the time. He has no other concerns Exam Vital Signs Vital Sign - Last Date Time Temp Pulse Resp B/P Pulse Ox O2 Delivery O2 Flow Rate FiO2 10/04/16 21:03 36.8 54 16 121/77 94 Room Air 09/28/16 08:55 2 Intake and Output 10/03/16 10/03/16 10/04/16 Cumulative From/Thru 14:59 22:59 06:59 09/28/16 08:12 - 10/04/16 06:52 Intake Total 556 ml 100 ml 7586 ml Output Total 1600 ml 1175 ml 9850 ml Balance -1044 ml -1075 ml -2264 ml Intake Oral 556 ml 100 ml 1857 ml IV Total 5729 ml Output Urine Total 1600 ml 1175 ml 9850 ml # Bowel Movements 0 Exam Constitutional obese middle-age male who is in no acute distress but a bit drowsy Head: Left facial droop Chest: Clear to auscultation Cor: Regular rate and rhythm S1-S2 Abdomen: Nondistended Extremities trace bilateral pedal edema Neuro he is drowsy but does awaken and answers questions appropriately. Speech is more coherent today Has left hemiparesis. With some dysarthria. Positive for facial asymmetry. He has no altered sensation in the left lower extremity and left upper extremity MSK: Moving his extremities ' Psych: Mood is mildly agitated IVs and Medications Medications Reviewed: Medications were reviewed in detail Lab and Diagnostics Result Diagram: 10/01/16 0645 10/02/16 0600 X-Rays, CTs and MRIs Date of Service: 09/28/16 0803 PROCEDURE: CT BRAIN TPA INDICATIONS: STROKE COMPARISON: None. TECHNIQUE: Axial 5 mm thin sections through the head were obtained without contrast FINDINGS: No sign of stroke or hemorrhage, no thrombus within the skull base arterial vasculature is identified. Minimal mucosal thickening involves the ethmoid air cells bilaterally symmetric. IMPRESSION: No contraindication to TPA administration found. This information was immediately called directly to the emergency room physician caring for the patient at 8:29. Dictated by: Naveen Reed M.D. on 09/28/2016 at 8:30 Approved by: Naveen Reed M.D. on 09/28/2016 at 8:34 Date of Service: 09/28/16 0845 PROCEDURE: CT ANGIO BRAIN NECK TPA INDICATIONS: Stroke symptoms, improving. TECHNIQUE: Pre-contrast 4.5 mm thick sections acquired from the foramen magnum to the vertex. After the administration of intravenous contrast, 1 mm thick sections acquired from the aortic arch through the [place]. Post-contrast 4.5 mm thick sections then re-acquired from the foramen magnum to the vertex. 3- dimensional jbyqbmi-idypswirn-todmyfhhcu (MIP) and/or volume rendering reformats were acquired of the central intracranial vasculature and neck separately. For radiation dose reduction, the following was used: automated exposure control, adjustment of mA and/or kV according to patient size. COMPARISON: Located Within [facility], CT, CT BRAIN TPA, 09/28/2016, 8:20. FINDINGS: Image quality: Excellent. BRAIN: CSF spaces: Ventricles are normal in size and shape. Basal cisterns are patent. No extra-axial fluid collections. Brain: No midline shift. No intracranial bleeds or masses. Roldan-white matter interface appears intact. Skull and face: Calvarium and facial bones appear intact, without suspicious lesions. Orbits appear normal. Sinuses: Sinuses and mastoids are clear. HEAD CT ANGIOGRAPHY: Anterior circulation: Intracranial internal carotid arteries are normal in size and flow. The flow within the paired anterior cerebral arteries is normal and symmetric. The flow within the middle cerebral arteries is normal and symmetric. The anterior communicating artery is seen. No aneurysms are seen. Posterior circulation: Visualized portions of the vertebral arteries demonstrate normal caliber, and join to form a normal appearing basilar artery. Flow within the posterior cerebral arteries is normal and symmetric. No aneurysms are seen. NECK CT ANGIOGRAPHY: Carotid system: The great vessels demonstrate a conventional anatomy as they arise from the aortic arch. The origins of the common carotid arteries appear patent. The common carotid arteries demonstrate normal caliber and courses. The bifurcation regions are both widely patent. The internal carotid arteries demonstrate normal calibers and courses. Posterior circulation: The origins of the vertebral arteries both appear widely patent. The more superior extracranial portions of both vertebral arteries also demonstrate normal courses and calibers. They join to form a normal appearing basilar artery. Soft tissues: Visualized neck soft tissues demonstrate no suspicious abnormalities. A small focus of increased radiodensity at the right forehead area is incidentally noted, possibly a minimal contusion from recent trauma but a small focus of scar tissue also could produce the appearance. Bones: No suspicious bony lesions. Visualized cervical spine appears normally aligned. IMPRESSION: No aneurysm or embolus seen, and no area of vascular stenosis or dissection identified. Findings immediately called to the ordering emergency room physician caring for the patient. Dictated by: Naveen Reed M.D. on 09/28/2016 at 10:08 Approved by: Naveen Reed M.D. on 09/28/2016 at 10:14 PROCEDURE: MRI BRAIN WITHOUT CONTRAST ([id number]) INDICATIONS: Post tPA IF CTA NOT done w/tPA Infusion TECHNIQUE: Non-contrast axial T1 spin echo, axial T2 fast spin echo, sagittal and axial FLAIR, coronal T2 fast spin echo, axial gradient echo, axial diffusion and ADC through the brain. COMPARISON: None. FINDINGS: Image quality: Motion degraded examination.. CSF spaces: Ventricles appear symmetric in size and shape. Basal cisterns are patent. No extra-axial fluid collections. Brain: No intracranial bleeds or mass effects. There is cerebral volume loss for age. There are periventricular and deep white matter chronic small vessel ischemic changes. Brainstem appears normal. Diffusion-weighted images show acute ischemia within the right basal ganglia region involving the posterior limb of the right internal capsule, and the right frontal periventricular white matter/centrum semiovale. Normal intravascular flow voids are present. Skull and face: Calvarial bone marrow is normal in signal. Orbits are normal. Sinuses: Sinuses and mastoids are clear. IMPRESSION: Acute ischemia involving the right basal ganglia, and right centrum semiovale as above. Dictated by: Donny Woo M.D. on 09/29/2016 at 13:15 Approved by: Donny Woo M.D. on 09/29/2016 at 13:22 Cardiac Echo Impressions Echocardiogram Report Name: GRECIA NUGENT Study Date: 09/29/2016 Height: 67 in Hospital Exam Location: [facility] Weight: 254 lb Gender: Male BSA: 2.2 m2 : 1960 Age: 56 yrs BP: 131/93 mm Hg Reason For Study: CVA Ordering Physician: HOSPITALIST SV Performed By: Anna Guido Referring Physician: Janie Bob Interpretation Summary The left ventricular cavity is small. Proximal septal thickening is noted. There is no echo evidence for significant left ventricular outflow tract obstruction. The left ventricle is hyperdynamic. The ejection fraction is estimated to be 70-75%. The right ventricle is normal in size and function. Injection of contrast documented no interatrial shunt. No significant valvular pathology seen. Mild atherosclerotic plaque(s) in the aortic arch. The ascending aorta is mild-moderately enlarged. Assessment & Plan #. 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 --The patient appears to have minimal response to TPA. Appears to have a dense left hemiparesis. He also appears to have significant lethargy, somnolence, dysphagia, and dysarthria. -- Speech therapy was working with the patient earlier on September 30 and again on October 01 and he has been able to safely take some orals. Further directions per them. Feeding tube was not placed/needed -- Continue with OT/PT. patient walked with physical therapy for 15 feet. Still needing two person assist for transfer, commode. Current Discharge Recommendations [facility] Facility, Inpatient Rehab -- Case management to arrange for placement. -- Lipid panel shooed CHOL 144 LDL 100 TG 65 HDL 31. Started him on atorvastatin 10 mg daily at bedtime -- He does have mild atherosclerotic plaques noted in the aortic arch. -- Ordered hypercoagulation panel in the absence of any other strong etiologies for his stroke: In this screen is negative, C3-C4 complements are normal, RPR nonreactive -- Plan to order Holter monitor at discharge, we will consider CT chest/ abdominal pelvic to rule out malignancy of the reason for his stroke Hypertension, new diagnosis improving -- Patient has no home medication. -- Started him on lisinopril 5 mg daily by mouth #. Acute encephalopathy, POA. -- Stable. #. Chronic anisocoria, POA. -- Stable # methamphetamine abuse. -- drug screen positive for amphetamines.. DVT prophylaxis with heparin subcutaneous. Patient is presumed to be a full resuscitation Patient is admitted inpatient status with an expected length of stay of over 2 nights. No change in management for 10/04/16. Plan to discharge patient to [facility] in the a.m. VTE Mechanical Devices: Intermittant Pneumatic CD Resuscitation Status: CPR: Attempt Resuscitation Time spent 25 minutes Carlie Shannon DO Oct 04, 2016 22:37
[2016-10-05 00:24] VITALS: BP 132/89; PULSE 62; RESP 16; O2SAT 95
[2016-10-05] MEDS: Heparin 5,000 Unit/mL Inj SUBQ SCH ×2 (02:44→13:45)
[2016-10-05 04:15] VITALS: BP 124/83; PULSE 58; RESP 16; O2SAT 97
--- NOTE | 2016-10-05 05:10 | NUR ---
NOC/Activity Pt has been cooperative with care. Altho irritated about the bed, states that it's not comfortable. Pt then decided to transfer to bruce-chair. Pt's VSS, and has been afebrile. Neuro VS done and no further changed. Noted slurring of speech, left sided facial droop, left arm flacidity and left lower leg weakness. Hourly rounding in effect.
[2016-10-05 06:19] VITALS: PULSE 46
[2016-10-05 08:00] VITALS: PULSE 69
[2016-10-05 09:20] VITALS: BP 122/88; PULSE 61; RESP 16; O2SAT 95
[2016-10-05 12:36] VITALS: BP 116/78; PULSE 60; RESP 16; O2SAT 96
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
--- NOTE | 2016-10-05 14:27 | NUR ---
Social Work: Discharge Data: Pt is on day 7 of hospitalization. EMR reviewed. Pt discussed in multidisciplinary rounds. MD states pt ready for d/c today. D/C orders in, disposition SNF. PIGMENT GRINDER spoke with Charlene with [facility]. Transportation set up for 3PM today. PIGMENT GRINDER notified pt, RN, UA, and MD. No further d/c planning needs at this time. PIGMENT GRINDER will continue to follow if needs arise. Assessment: Pt who is independent at baseline, drug abuse, currently not capable of self care needing SNF. Plan: Pt will d/c to [facility] via cabulance at 3PM today. No further d/c planning needs at this time. PIGMENT GRINDER will continue to follow if needs arise. ANIVAL Layton
--- NOTE | 2016-10-05 15:18 | NUR ---
DISCHARGE Pt discharged to [facility] this afternoon, off unit at 1515 via w/c transport. IV dc'd intact and all belongings returned. Pt alert, denies any pain/discomfort and in no obvious distress. Pt transferred to w/c with 2 person assist, tolerated well. Moving LLE minimally, LUE remains flaccid. Report called to NELLIE at [facility] at 1519.
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
[2016-10-07 09:47] LABS: Protein C-Functional 161 % (73-180)
[2016-10-07 10:10] LABS: dRVVT 36.5 sec (0.0-47.0)
[2016-10-07 14:08] LABS: Perinuclear (P-ANCA) <1:20 titer (Neg:<1:20)
== END 2016-10-05 15:15 | DRG 61 ==
LOC: EDBD 08:02 → SED 08:02 → CCU 10:38 → PCC 09-29 10:19 → MPC 09-29 10:26
PROVIDERS: ADMIT Hospitalist; ATTEND Hospitalist
DX: I63.9 Cerebral infarction, unspecified (principal); G93.40 Encephalopathy, unspecified; G81.94 Hemiplegia, unspecified affecting left nondominant side; I10 Essential (primary) hypertension; F15.10 Other stimulant abuse, uncomplicated; R29.715 NIHSS score 15; R47.81 Slurred speech; H57.02 Anisocoria; R29.810 Facial weakness; R13.10 Dysphagia, unspecified; R47.1 Dysarthria and anarthria